=== PATIENT | female | born 1950 | race Caucasian/White ===

== ENCOUNTER → 2024-08-19 | Outpatient (CLI) | payer MEDICARE, BC, SELFPAY | END | disposition home or self-care (01) | LOC: SWHD 13:07 | PROVIDERS: PCP Family Medicine; Referring Provider Family Medicine; Visit Provider Surgery | DX: S21.001A Unspecified open wound of right breast, initial encounter (principal); X58.XXXA Exposure to other specified factors, initial encounter; D84.89 Other immunodeficiencies; N60.01 Solitary cyst of right breast; I82.402 Acute embolism and thrombosis of unspecified deep veins of left lower extremity; I10 Essential (primary) hypertension; E11.69 Type 2 diabetes mellitus with other specified complication; Z79.4 Long term (current) use of insulin | CPT/HCPCS: 99213; A9270; G0463 ==

== ENCOUNTER → 2024-09-15 | Outpatient (CLI) | payer MEDICARE, BC, SELFPAY ==
[2024-09-15 11:15] LABS: Parathyroid Hormone Intact 151.3 pg/ml (18.5-88.0)
[2024-09-15 11:20] LABS: Albumin, Serum 4.1 gm/dL (3.4-4.8); Anion Gap 7 (7-16); BUN/Creatinine Ratio 20 Ratio (12-20); Blood Urea Nitrogen 32 mg/dL (9-23); Calcium 9.1 mg/dL (8.3-10.6); Calcium (Corrected) 9.1 mg/dL (8.5-10.1); Carbon Dioxide 26.3 mMol/L (20.0-31.0); Chloride 104 mMol/L (98-107); Creatinine (Component) 1.6 mg/dL (0.6-1.3); Glucose 116 mg/dL (74-106); Osmolality,Calculated 281 (275-295); Phosphorous 4.4 mg/dL (2.4-5.1); Potassium 4.5 mMol/L (3.4-5.1); Sodium 137 mMol/L (136-145); eGFR 34 See Note
[2024-09-15 11:42] LABS: Vitamin D 25 Hydroxy Total 34.1 ng/mL (7.3-40.2)
[2024-09-15 12:12] LABS: Total Iron Binding Capacity 271 mcg/dL (250-425)
[2024-09-15 12:24] LABS: Iron 57 mcg/dL (50-170); Percent Iron Saturation 21 % (20-55); Unsaturated Iron Binding 214 (225-295)
[2024-09-15 12:52] LABS: Basophils # (Auto) 0.1 Thou/mm3 (0.0-0.2); Basophils % (Auto) 1 % (0-2.5); Eosinophils # (Auto) 0.3 Thou/mm3 (0.0-0.5); Eosinophils % (Auto) 7 % (0-10); Hematocrit 35.6 % (36.0-46.0); Immature Granulocytes % (Auto) 0 % (0-0); Immature Granulocytes Auto 0.02 Thou/mm3 (0.00-0.00); Lymphocytes # (Auto) 1.2 Thou/mm3 (1.0-4.8); Lymphocytes % (Auto) 23 % (10-50); Mean Corpuscular HGB Conc 33.7 g/dl (31.0-37.0); Mean Corpuscular Hemoglobin 30.8 pg (25.0-35.0); Mean Corpuscular Volume 91 fL (80-100); Monocytes # (Auto) 0.5 Thou/mm3 (0.0-0.8); Monocytes % (Auto) 10 % (0-12); Neutrophils % (Auto) 59 % (37-80); Nucleated Red Blood Cell % 0 /100 WBC (0); Platelet Count 135 Thou/mm3 (140-440)
== END | disposition home or self-care (01) ==
LOC: COPL 10:04
PROVIDERS: PCP Family Medicine; Referring Provider Internal Medicine Nephrology; Visit Provider Internal Medicine Nephrology
DX: N18.30 Chronic kidney disease, stage 3 unspecified (principal); D63.1 Anemia in chronic kidney disease; E55.9 Vitamin D deficiency, unspecified
CPT/HCPCS: 36415; 80069; 81001; 82306; 83540; 83550; 83970; 85025

== ENCOUNTER → 2024-09-16 | Outpatient (CLI) | payer MEDICARE, BC, SELFPAY ==
[2024-09-16 14:00] LABS: Collection Type, Urine Clean Catch
[2024-09-16 16:55] LABS: Bilirubin,Urine Negative (Negative); Blood,Urine Negative (Negative); Clarity,Urine Clear (Clear/Hazy); Color,Urine Lt-Yellow (Lt Yel-Yel); Glucose, Urine 4+ (Negative); Ketones,Urine Negative (Negative); Leukocyte Esterase,Urine Negative (Negative); Nitrite,Urine Negative (Negative); PH,Urine 5.5 (5.0-7.0); Protein,Urine 1+ (Neg - Trace); RBC,Urine 1 /hpf (0-3); Specific Gravity,Urine 1.012 (1.001-1.035); Squamous Epithelial Cell,Urine 1 /hpf (0-5); Urobilinogen,Urine Negative mg/dL (0.0-1.0); WBC,Urine 5 /hpf (0-5)
== END | disposition home or self-care (01) ==
LOC: SLDO 13:56
PROVIDERS: Referring Provider Internal Medicine Nephrology; Visit Provider Internal Medicine Nephrology
DX: I12.9 Hypertensive chronic kidney disease with stage 1 through stage 4 chronic kidney disease, or unspecified chronic kidney disease (principal); E11.22 Type 2 diabetes mellitus with diabetic chronic kidney disease; N18.32 Chronic kidney disease, stage 3b; D63.1 Anemia in chronic kidney disease; E55.9 Vitamin D deficiency, unspecified
CPT/HCPCS: 81001

== ENCOUNTER 2024-10-26 08:13 | Outpatient (RCR) | payer MEDICARE, BC, SELFPAY ==
--- NOTE | 2024-10-06 11:45 | CTCFLWUP_ITS ---
Patient: ADAL SCHWARZ : 1950 Page 8 of 9 FOLLOW UP NOTE DATE OF SERVICE: 10/06/2024 NAME: ADAL SCHWARZ ACCOUNT: [id number] : 1950 AGE: 74 REASON FOR VISIT: Follow up on rectal adenocarcinoma Interval history Patient received her last chemotherapy with 5-FU on July 27. Patient had cyst on her breast which was incised and drained. Patient has not come for a treatment since then. Patient is now ready to r esume her therapy and requesting to restart her chemotherapy. Patient also saw her yeast fermentation attendant and primary care who it seems recommended hydrochlorothiazide and f urosemide as her blood pressure medications and patient wanted my opinion to home to follow through. Patient still have noticed swelling in her feet. She takes Lasix and potassium as needed and today she did not take it. Patient is planning a trip to [place] and then [place]. She was diagnosed with a blood clot in her leg and has been on Eliquis. Patient takes Eliquis once daily as she was unable to tolerate twice daily and had bleeding. ONCOLOGY HISTORY: DIAGNOSIS: synchronous stage I (T2, NX, cM 0) pT2, NX well-differentiated rectal adenocarcinoma S/p transanal ex cision of the rectal adenocarcinoma (06/19/2023) Stage IIa (PT3, N0, cM0) moderately differentiated adenocarcinoma of the ascending colon, S/p right h emicolectomy (08/15/2023) S/p adjuvant chemoradiation therapy for the rectal area with Capecitabine as radiosensitizing agent. Unfortunately Ms. Schwarz was not able to take the Capecitabine due to CRF. According to her she only take 2 weeks worth of Capecitabine. Currently on adjuvant 5-FU and leucovorin (02/12/2024??) last taken on 07/27/2024 DATE OF DIAGNOSIS: STAGE/TNM: TREATMENT HISTORY: Care?Plan Start?Date Cycle Day Intent INJECTAFER 09/25/2023 1 14 Palliative 5?FU?and?leucovorin 02/12/2024 1 56 Curative?(adjuvant) BRIANNA Schwarz is a 74-year-old ENG speaking female with history of type 2 diabetes currently on insulin, peripheral neuropathy for at least last 5 years and lower extremities started having rect al bleeding in April 2023. Patient also lost about 20 pounds in last 1 year. 05/27/2023: Ms. Schwarz had a colonoscopy done 06/19/2023: Ms. Schwarz had a full-thickness transanal excision of the rectal tumor 08/15/2023: Ms. Schwarz had right hemicolectomy 11/19/2023 - 12/26/2023: Ms. Schwarz had adjuvant chemoradiation therapy to the rectal cancer. Unfortunat saulo she was not able to take full course of Capecitabine. According to Ms. Schwarz she only took 2 wee ks worth of Capecitabine. 10/22/2023: PET/CT scan? 02/05/2024: PET/CT scan? 02/12/2024: Started on adjuvant 5-FU and leucovorin. OTHER MEDICAL HISTORY/CONDITIONS: HYPERTENSION DIBETES TYPE 2 PANCREATITIS / COLON CANCER DX KIDNEY STONES RHEUMATIC FEVER 1961 HERNIA LAPARASCOPIC ASSISTED RIGHT COLECTOMY (08/15/2023) COLONOSCOPY () HERNIA SX REPAIR (05/16/2020) HYSTERECTOMY (1978) VENA SEAL BILATERAL LEG DR RAMIREZ 02/2020 EYELID SURGERY 09/2002 CERVICAL EPIDURAL 10/2020 REMOVAL OF TUBES AND OVARIES 05/2022 RECTAL CANCER SX 06/26/2023 APPENDECTOMY 196 SX BILATERAL HAMMERTOES 09/06/2019 BLADDER LEFT/REPAIR RECTUM AND VAGINA 01/2019 REMOVAL OF KIDNEY STONES LEFT SIDE STENT 09/2018 PANCREATIC PSEUDOCYST 03/2018 UMBILICAL HERNIA 05/2017 REMOVAL KIDNEY STONE RIGHT SIDE/ STENT PLACED 04/2015 CHOLECYSTECTOMY 03/2011 BLADDER REPAIR [place] 01/2003 TONSILLECTOMY 1963 FAMILY HISTORY: Father: FATHER BLADDER CANCER, NASAL TUMOR Mother:?MOTHER?LUNG?CANCER Sibling:?DENIES Children:?DENIES Cancer History:?RECTAL CANCER DX 05/2023 SOCIAL HISTORY: 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 amlodipine - 5 mg 1 tab Daily 2. apixaban - 5 mg (74 tabs) 1 tab as per instructions 3. cloNIDine - 0.2 mg/24 hr 1 Patch Weekly 4. Farxiga - 10 mg 1 tab Every other day 5. HumaLOG KwikPen Insulin - 100 unit/mL As directed 6. Lantus - 100 unit/mL 13 Unit In the evening 7. Lomotil - 2.5-0.025 mg 1 tab one po four times a day prn diarrhea 8. timoloL maleate - 0.5 % 1 As directed 9. Triamterene W/Hctz - 37.5-25 mg 1 tab Daily 10. valsartan - 320 mg 1 tab Daily 11. Vitamin C - 1,000 mg 1 Capsule Medications Last Reconciled by Neema Dalton MA on 10/06/2024 ALLERGIES: Penicillin V; Penicillin V; MIDAZOLAM HCL REVIEW OF SYSTEMS: A complete 14-point review of systems was performed and is negative except as noted in interval histo ry. PHYSICAL EXAMINATION: VITAL SIGNS: Temperature?98, B/P?159/76, Oxygen?Saturation?99% Weight?157?lbs PAIN: 0 - No pain ECOG Performance Status: 1 - Symptomatic; ambulatory; restricted in strenuous activity General Examination alert oriented x 4 CHEST: Clear to auscultation. No wheezes or rales audible. CARDIAC: Rhythm regular, no murmurs or gallops present. ABDOMEN: Soft. No hepatomegaly. No splenomegaly. EXTREMITIES: At least 2+ pitting edema LABORATORY DATA: I have personally reviewed and interpreted each of the patient?s relevant lab tests, abnormal finding s are below: Date 09/15/24 ??GLUCOSE,RANDOM?(mg/dL) 116?H ??BLOOD?UREA?NITROGEN?(mg/dL) 32?H ??CREATININE?(mg/dL) 1.60?H ??SODIUM?(mmol/L) 137 ??POTASSIUM?(mmol/L) 4.5 ??CHLORIDE?(mmol/L) 104 ??CrCl?(CandG)?(ml/min) 30.44 ??ALBUMIN,?SERUM?(gm/dl) 4.1 ??CALCIUM,?SERUM?(mg/dL) 9.1 ??CALCIUM?SERUM?(CORRECTED)?(mg/dL) 9.1 IMPRESSION/PLAN: Adenocarcinoma of the rectum no MSI Patient has been on adjuvant chemotherapy with 5-FU after being treated with concurrent chemoradiatio n With restart her on 5-FU to complete for 6 months Advised to schedule patient ROBERTO ORDERS: CBC CMP CEA RETURN TO CLINIC: In 3 weeks BILLING AND COMPLIANCE: I reviewed external records from providers outside my specialty as summarized above. I spent a total of 50 minutes on this patient?s care on the day of their visit excluding time spent related to any bi lled procedures. This time includes time spent with the patient as well as time spent documenting in the medical record, reviewing patients records and tests, obtaining history, placing orders, communi cating with other healthcare professionals, counseling the patient, family or caregiver, and/or care coordination for the diagnoses above. Electronically Signed by: {Object.Sanct_ID*[email or web address]@M}, {Object.Sanct_ID*PnP.Suffix@U} D: {Object.Sanct_Date} T: {Object.Sanct_Time} CC: PCP: Duran Briseno Referring: Duran Briseno This document was completed utilizing speech recognition software. Grammatical errors, random word in sertions, pronoun errors, and incomplete sentences are an occasional consequence of this system due t o software limitations, ambient noise, and hardware issues. Any formal questions or concerns about e content, text or information contained within the body of this dictation should be directly address ed to the provider for clarification.
[2024-10-12 16:20] LABS: Basophils # (Auto) 0.1 Thou/mm3 (0.0-0.2); Basophils % (Auto) 1 % (0-2.5); Eosinophils # (Auto) 0.2 Thou/mm3 (0.0-0.5); Eosinophils % (Auto) 4 % (0-10); Hematocrit 33.3 % (36.0-46.0); Immature Granulocytes % (Auto) 0 % (0-0); Immature Granulocytes Auto 0.01 Thou/mm3 (0.00-0.00); Lymphocytes # (Auto) 1.2 Thou/mm3 (1.0-4.8); Lymphocytes % (Auto) 21 % (10-50); Mean Corpuscular Hemoglobin 29.2 pg (25.0-35.0); Mean Corpuscular Volume 88 fL (80-100); Monocytes # (Auto) 0.5 Thou/mm3 (0.0-0.8); Monocytes % (Auto) 10 % (0-12); Neutrophils # (Auto) 3.5 Thou/mm3 (1.8-7.7); Neutrophils % (Auto) 64 % (37-80); Nucleated Red Blood Cell % 0 /100 WBC (0); Platelet Count 145 Thou/mm3 (140-440); RDW Standard Deviation 44.5 fL (36.4-46.3); Red Blood Count 3.77 Miln/mm3 (4.00-5.20); White Blood Count 5.5 Thou/mm3 (3.6-11.0)
[2024-10-12 16:43] LABS: Alanine Aminotransferase 22 U/L (10-49); Albumin, Serum 4.4 gm/dL (3.4-4.8); Albumin/Globulin Ratio 1.9 (1.2-2.2); Alkaline Phosphatase 102 U/L (46-116); Anion Gap 10 (7-16); Aspartate Amino Transferase 11 U/L (0-34); BUN/Creatinine Ratio 23 Ratio (12-20); Bilirubin,Total 0.4 mg/dL (0.3-1.2); Blood Urea Nitrogen 42 mg/dL (9-23); Calcium 9.1 mg/dL (8.3-10.6); Calcium (Corrected) 9.1 mg/dL (8.5-10.1); Carbon Dioxide 20.4 mMol/L (20.0-31.0); Chloride 106 mMol/L (98-107); Creatinine (Component) 1.8 mg/dL (0.6-1.3); Globulin 2.3 gm/dL (2.3-3.5); Glucose 168 mg/dL (74-106); Osmolality,Calculated 286 (275-295); Potassium 4.4 mMol/L (3.4-5.1); Sodium 136 mMol/L (136-145); Total Protein 6.7 gm/dL (5.7-8.2); eGFR 29 See Note
[2024-10-21 09:54] LABS: Basophils % (Auto) 1 % (0-2.5); Eosinophils # (Auto) 0.4 Thou/mm3 (0.0-0.5); Eosinophils % (Auto) 8 % (0-10); Hematocrit 33.4 % (36.0-46.0); Hemoglobin 10.9 g/dL (12.0-16.0); Immature Granulocytes % (Auto) 0 % (0-0); Immature Granulocytes Auto 0.01 Thou/mm3 (0.00-0.00); Lymphocytes # (Auto) 0.9 Thou/mm3 (1.0-4.8); Lymphocytes % (Auto) 18 % (10-50); Mean Corpuscular HGB Conc 32.6 g/dl (31.0-37.0); Mean Corpuscular Hemoglobin 29.2 pg (25.0-35.0); Mean Corpuscular Volume 90 fL (80-100); Monocytes # (Auto) 0.5 Thou/mm3 (0.0-0.8); Monocytes % (Auto) 9 % (0-12); Neutrophils # (Auto) 3.2 Thou/mm3 (1.8-7.7); Neutrophils % (Auto) 63 % (37-80); Nucleated Red Blood Cell % 0 /100 WBC (0); Platelet Count 129 Thou/mm3 (140-440); RDW Standard Deviation 44.4 fL (36.4-46.3); Red Blood Count 3.73 Miln/mm3 (4.00-5.20); White Blood Count 5.1 Thou/mm3 (3.6-11.0)
[2024-10-21 10:04] LABS: Alanine Aminotransferase 20 U/L (10-49); Albumin, Serum 4.2 gm/dL (3.4-4.8); Albumin/Globulin Ratio 1.8 (1.2-2.2); Alkaline Phosphatase 103 U/L (46-116); Anion Gap 8 (7-16); Aspartate Amino Transferase 21 U/L (0-34); BUN/Creatinine Ratio 24 Ratio (12-20); Bilirubin,Total 0.3 mg/dL (0.3-1.2); Blood Urea Nitrogen 38 mg/dL (9-23); Calcium 9.1 mg/dL (8.3-10.6); Calcium (Corrected) 9.1 mg/dL (8.5-10.1); Carbon Dioxide 22.2 mMol/L (20.0-31.0); Chloride 110 mMol/L (98-107); Creatinine (Component) 1.6 mg/dL (0.6-1.3); Globulin 2.4 gm/dL (2.3-3.5); Glucose 126 mg/dL (74-106); Osmolality,Calculated 290 (275-295); Potassium 4.4 mMol/L (3.4-5.1); Sodium 140 mMol/L (136-145); Total Protein 6.6 gm/dL (5.7-8.2); eGFR 34 See Note
[2024-10-26 08:57] LABS: Basophils % (Auto) 1 % (0-2.5); Eosinophils # (Auto) 0.2 Thou/mm3 (0.0-0.5); Eosinophils % (Auto) 5 % (0-10); Hematocrit 32.4 % (36.0-46.0); Immature Granulocytes % (Auto) 0 % (0-0); Immature Granulocytes Auto 0.01 Thou/mm3 (0.00-0.00); Lymphocytes # (Auto) 0.7 Thou/mm3 (1.0-4.8); Lymphocytes % (Auto) 17 % (10-50); Mean Corpuscular Volume 88 fL (80-100); Monocytes # (Auto) 0.3 Thou/mm3 (0.0-0.8); Monocytes % (Auto) 6 % (0-12); Neutrophils # (Auto) 3.2 Thou/mm3 (1.8-7.7); Neutrophils % (Auto) 72 % (37-80); Nucleated Red Blood Cell % 0 /100 WBC (0); Platelet Count 105 Thou/mm3 (140-440); Red Blood Count 3.67 Miln/mm3 (4.00-5.20); White Blood Count 4.4 Thou/mm3 (3.6-11.0)
[2024-10-26 09:20] LABS: Alanine Aminotransferase 10 U/L (10-49); Albumin/Globulin Ratio 1.8 (1.2-2.2); Alkaline Phosphatase 96 U/L (46-116); Anion Gap 9 (7-16); Aspartate Amino Transferase 27 U/L (0-34); BUN/Creatinine Ratio 23 Ratio (12-20); Bilirubin,Total 0.5 mg/dL (0.3-1.2); Blood Urea Nitrogen 34 mg/dL (9-23); Calcium 9.5 mg/dL (8.3-10.6); Calcium (Corrected) 9.5 mg/dL (8.5-10.1); Carbon Dioxide 19.1 mMol/L (20.0-31.0); Chloride 111 mMol/L (98-107); Creatinine (Component) 1.5 mg/dL (0.6-1.3); Globulin 2.2 gm/dL (2.3-3.5); Glucose 165 mg/dL (74-106); Osmolality,Calculated 289 (275-295); Potassium 4.6 mMol/L (3.4-5.1); Sodium 139 mMol/L (136-145); Total Protein 6.2 gm/dL (5.7-8.2); eGFR 36 See Note
[2024-10-26 09:32] LABS: Carcinoembryonic Antigen 3.4 ng/mL (0.0-5.0)
== END 2024-10-26 23:59 | disposition home or self-care (01) ==
LOC: SCTC 08:13
PROVIDERS: PCP Family Medicine; Referring Provider Family Medicine; Visit Provider Internal Medicine Hematology & Oncology
DX: Z51.11 Encounter for antineoplastic chemotherapy (principal); C20 Malignant neoplasm of rectum
CPT/HCPCS: 36591; 80053; 82378; 85025; 96366; 96367; 96368; 96375; 96409; 96411; A4216; J0640; J1642; J2405; J7040; J9190; Q3014

== ENCOUNTER 2024-11-17 14:40 | Outpatient (RCR) | payer MEDICARE, BC, SELFPAY ==
[2024-11-03 16:13] LABS: Basophils % (Auto) 0 % (0-2.5); Eosinophils # (Auto) 0.2 Thou/mm3 (0.0-0.5); Eosinophils % (Auto) 5 % (0-10); Hematocrit 29.7 % (36.0-46.0); Hemoglobin 9.9 g/dL (12.0-16.0); Immature Granulocytes % (Auto) 0 % (0-0); Immature Granulocytes Auto 0.01 Thou/mm3 (0.00-0.00); Lymphocytes # (Auto) 0.8 Thou/mm3 (1.0-4.8); Lymphocytes % (Auto) 18 % (10-50); Mean Corpuscular HGB Conc 33.3 g/dl (31.0-37.0); Mean Corpuscular Volume 87 fL (80-100); Monocytes # (Auto) 0.4 Thou/mm3 (0.0-0.8); Monocytes % (Auto) 8 % (0-12); Neutrophils # (Auto) 3.1 Thou/mm3 (1.8-7.7); Neutrophils % (Auto) 69 % (37-80); Nucleated Red Blood Cell % 0 /100 WBC (0); Platelet Count 108 Thou/mm3 (140-440); RDW Standard Deviation 44.5 fL (36.4-46.3); Red Blood Count 3.41 Miln/mm3 (4.00-5.20); White Blood Count 4.5 Thou/mm3 (3.6-11.0)
[2024-11-03 16:38] LABS: Alanine Aminotransferase 15 U/L (10-49); Albumin, Serum 4.1 gm/dL (3.4-4.8); Albumin/Globulin Ratio 1.9 (1.2-2.2); Alkaline Phosphatase 95 U/L (46-116); Anion Gap 8 (7-16); Aspartate Amino Transferase 18 U/L (0-34); BUN/Creatinine Ratio 29 Ratio (12-20); Bilirubin,Total 0.4 mg/dL (0.3-1.2); Blood Urea Nitrogen 44 mg/dL (9-23); Calcium 8.7 mg/dL (8.3-10.6); Calcium (Corrected) 8.7 mg/dL (8.5-10.1); Carbon Dioxide 19.6 mMol/L (20.0-31.0); Chloride 107 mMol/L (98-107); Creatinine (Component) 1.5 mg/dL (0.6-1.3); Globulin 2.2 gm/dL (2.3-3.5); Glucose 141 mg/dL (74-106); Osmolality,Calculated 283 (275-295); Potassium 4.4 mMol/L (3.4-5.1); Sodium 135 mMol/L (136-145); Total Protein 6.3 gm/dL (5.7-8.2); eGFR 36 See Note
[2024-11-03 16:59] LABS: Carcinoembryonic Antigen 3.9 ng/mL (0.0-5.0)
[2024-11-10 16:18] LABS: Basophils % (Auto) 0 % (0-2.5); Eosinophils # (Auto) 0.3 Thou/mm3 (0.0-0.5); Eosinophils % (Auto) 7 % (0-10); Hemoglobin 10.3 g/dL (12.0-16.0); Immature Granulocytes % (Auto) 0 % (0-0); Immature Granulocytes Auto 0.01 Thou/mm3 (0.00-0.00); Lymphocytes # (Auto) 1.2 Thou/mm3 (1.0-4.8); Lymphocytes % (Auto) 25 % (10-50); Mean Corpuscular HGB Conc 34.3 g/dl (31.0-37.0); Mean Corpuscular Hemoglobin 29.4 pg (25.0-35.0); Mean Corpuscular Volume 86 fL (80-100); Monocytes # (Auto) 0.4 Thou/mm3 (0.0-0.8); Monocytes % (Auto) 8 % (0-12); Neutrophils # (Auto) 2.7 Thou/mm3 (1.8-7.7); Neutrophils % (Auto) 59 % (37-80); Nucleated Red Blood Cell % 0 /100 WBC (0); Platelet Count 115 Thou/mm3 (140-440); RDW Standard Deviation 45.5 fL (36.4-46.3); White Blood Count 4.6 Thou/mm3 (3.6-11.0)
[2024-11-10 16:42] LABS: Alanine Aminotransferase 14 U/L (10-49); Albumin, Serum 4.3 gm/dL (3.4-4.8); Alkaline Phosphatase 105 U/L (46-116); Anion Gap 9 (7-16); Aspartate Amino Transferase 20 U/L (0-34); BUN/Creatinine Ratio 30 Ratio (12-20); Bilirubin,Total 0.4 mg/dL (0.3-1.2); Blood Urea Nitrogen 48 mg/dL (9-23); Calcium 9.1 mg/dL (8.3-10.6); Calcium (Corrected) 9.1 mg/dL (8.5-10.1); Carbon Dioxide 21.9 mMol/L (20.0-31.0); Chloride 103 mMol/L (98-107); Creatinine (Component) 1.6 mg/dL (0.6-1.3); Globulin 2.2 gm/dL (2.3-3.5); Glucose 73 mg/dL (74-106); Osmolality,Calculated 279 (275-295); Potassium 5.2 mMol/L (3.4-5.1); Sodium 134 mMol/L (136-145); Total Protein 6.5 gm/dL (5.7-8.2); eGFR 34 See Note
[2024-11-10 16:44] LABS: Carcinoembryonic Antigen 4.7 ng/mL (0.0-5.0)
[2024-11-11 09:57] LABS: Alanine Aminotransferase 13 U/L (10-49); Albumin, Serum 4.2 gm/dL (3.4-4.8); Alkaline Phosphatase 106 U/L (46-116); Anion Gap 9 (7-16); Aspartate Amino Transferase 18 U/L (0-34); BUN/Creatinine Ratio 28 Ratio (12-20); Bilirubin,Total 0.4 mg/dL (0.3-1.2); Blood Urea Nitrogen 47 mg/dL (9-23); Calcium 9.1 mg/dL (8.3-10.6); Calcium (Corrected) 9.1 mg/dL (8.5-10.1); Carbon Dioxide 22.2 mMol/L (20.0-31.0); Chloride 107 mMol/L (98-107); Creatinine (Component) 1.7 mg/dL (0.6-1.3); Globulin 2.1 gm/dL (2.3-3.5); Glucose 119 mg/dL (74-106); Osmolality,Calculated 288 (275-295); Potassium 4.8 mMol/L (3.4-5.1); Sodium 138 mMol/L (136-145); Total Protein 6.3 gm/dL (5.7-8.2); eGFR 31 See Note
--- NOTE | 2024-11-18 06:16 | CTCFLWUP_ITS ---
Patient: ADAL SCHWARZ : 1950 Page 3 of 4 FOLLOW UP NOTE DATE OF SERVICE: 11/17/2024 NAME: ADAL SCHWARZ ACCOUNT: [id number] : 1950 AGE: 74 INTERVAL HISTORY: ONCOLOGY HISTORY: DIAGNOSIS: Iron deficiency anemia, unspecified [ICD10] D50.9; Malignant neoplasm of rectum [ICD10] C20 DATE OF DIAGNOSIS: synchronous stage I (T2, NX, cM 0) pT2, NX well-differentiated rectal adenocarcinoma S/p transanal excision of the rectal adenocarcinoma (06/19/2023) Stage IIa (PT3, N0, cM0) moderately differentiated adenocarcinoma of the ascending colon, S/p right hemicolectomy (08/15/2023) S/p adjuvant chemoradiati on therapy for the rectal area with Capecitabine as radiosensitizing agent. Unfortunately Ms. Schwarz was not able to take the Capecitabine due to CRF. According to her she only t dimas 2 weeks worth of Capecitabine. Currently on adjuvant 5-FU and leucovorin (02/12/2024??) Chronic renal insufficiency Type 2 diabetes c urrently on insulin. History of peripheral neuropathy. STAGE/TNM: synchronous stage I (T2, NX, cM 0) pT2, NX well-differentiated rectal adenocarcinoma S/p transanal excision of the rectal adenocarcinoma (06/19/2023) Stage IIa (PT3, N0, cM0) moderately differentiated adenocarcinoma of the ascending colon, S/p right hemicolectomy (08/15/2023) TREATMENT HISTORY: Care?Plan Start?Date Cycle Day Intent INJECTAFER 09/25/2023 1 14 Palliative 5?FU?and?leucovorin 02/12/2024 1 56 Curative?(adjuvant) HISTORY OF PRESENT ILLNESS: Adal Schwarz is a 74-year-old ENG speaking female with history of type 2 diabetes currently on insulin, peripheral neuropathy for at least last 5 years and lower extremities started having rec anjali bleeding in April 2023. Patient also lost about 20 pounds in last 1 year. 05/27/2023: Ms. Schwarz had a colonoscopy done Patient: ADAL SCHWARZ. 06/19/2023: Ms. Schwarz had a full-thickness transanal excision of the rectal tumor Patient: SMITHA SCHWARZ 08/15/2023: Ms. Schwarz had right hemicolectomy 11/19/2023 - 12/26/2023: Ms. Schwarz had adjuvant chemoradia tion therapy to the rectal cancer. Unfortunately she was not able to take full course of Capecitabine . According to Ms. Schwarz she only took 2 weeks worth of Capecitabine. 10/22/2023: PET/CT scan? 02/05/2024: PET/CT scan? 02/12/2024: Started on adjuvant 5-FU and leucovorin. OTHER MEDICAL HISTORY/CONDITIONS: HYPERTENSION DIBETES TYPE 2 PANCREATITIS / COLON CANCER DX KIDNEY STONES RHEUMATIC FEVER 1961 HERNIA LAPARASCOPIC ASSISTED RIGHT COLECTOMY (08/15/2023) COLONOSCOPY () HERNIA SX REPAIR (05/16/2020) HYSTERECTOMY (1978) VENA SEAL BILATERAL LEG DR RAMIREZ 02/2020 EYELID SURGERY 09/2002 CERVICAL EPIDURAL 10/2020 REMOVAL OF TUBES AND OVARIES 05/2022 RECTAL CANCER SX 06/26/2023 APPENDECTOMY 1960 SX BILATERAL HAMMERTOES 09/06/2019 BLADDER LEFT/REPAIR RECTUM AND VAGINA 01/2019 REMOVAL OF KIDNEY STONES LEFT SIDE STENT 09/2018 PANCREATIC PSEUDOCYST 03/2018 UMBILICAL HERNIA 05/2017 REMOVAL KIDNEY STONE RIGHT SIDE/ STENT PLACED 04/2015 CHOLECYSTECTOMY 03/2011 BLADDER REPAIR [place] 01/2003 TONSILLECTOMY 1963 FAMILY HISTORY: Father: FATHER BLADDER CANCER, NASAL TUMOR Mother:?MOTHER?LUNG?CANCER Sibling:?DENIES Children:?DENIES Cancer History:?RECTAL CANCER DX 05/2023 SOCIAL HISTORY: 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 amlodipine - 5 mg 1 tab Daily 2. apixaban - 5 mg (74 tabs) 1 tab as per instructions 3. cloNIDine - 0.2 mg/24 hr 1 Patch Weekly 4. HumaLOG KwikPen Insulin - 100 unit/mL As directed 5. Lantus - 100 unit/mL 13 Unit In the evening 6. Lomotil - 2.5-0.025 mg 1 tab one po four times a day prn diarrhea 7. Triamterene W/Hctz - 37.5-25 mg 1 tab Daily 8. valsartan - 320 mg 1 tab Daily 9. Vitamin C - 1,000 mg 1 Capsule Medications Last Reconciled by Alexa Jane MA on 11/17/2024 ALLERGIES: Penicillin V; Penicillin V; MIDAZOLAM HCL REVIEW OF SYSTEMS: A complete 14-point review of systems was performed and is negative except as noted in interval histo ry. PHYSICAL EXAMINATION: VITAL SIGNS: Temperature?98.2, B/P?121/74, Oxygen?Saturation?100% Weight?153?lbs (Change?since? 5:?-7?lbs) PAIN: 0 - No pain General Examination alert oriented x 4 CHEST: Clear to auscultation. No wheezes or rales audible. CARDIAC: Rhythm regular, no murmurs or gallops present. ABDOMEN: Soft. No hepatomegaly. No splenomegaly. EXTREMITIES: At least 2+ pitting edema LABORATORY DATA: I have personally reviewed and interpreted each of the patient?s relevant lab tests, abnormal finding s are below: Date 11/11/24 ??GLUCOSE,RANDOM?(mg/dL) 119?H ??BLOOD?UREA?NITROGEN?(mg/dL) 47?H ??CREATININE?(mg/dL) 1.70?H ??SODIUM?(mmol/L) 138 ??POTASSIUM?(mmol/L) 4.8 ??CHLORIDE?(mmol/L) 107 ??CrCl?(CandG)?(ml/min) 28.65 ??AST/SGOT?(Unit/L) 18 ??ALT/SGPT?(Unit/L) 13 ??ALKALINE?PHOSPHATASE?(Unit/L) 106 ??BILIRUBIN,?TOTAL?(mg/dL) 0.4 ??PROTEIN?TOTAL?(gm/dl) 6.3 ??ALBUMIN,?SERUM?(gm/dl) 4.2 ??GLOBULIN?(gm/dl) 2.1?L ??ALBUMIN/GLOBULIN?RATIO 2.0 ??CALCIUM,?SERUM?(mg/dL) 9.1 ??CALCIUM?SERUM?(CORRECTED)?(mg/dL) 9.1 ASSESSMENT/PLAN: synchronous stage I (T2, NX, cM 0) pT2, NX well-differentiated rectal adenocarcinoma S/p transanal ex cision of the rectal adenocarcinoma (06/19/2023) Stage IIa (PT3, N0, cM0), pMMR, moderately differentiated adenocarcinoma of the ascending colon, S/p right hemicolectomy (08/15/2023) Ms. Schwarz completed adjuvant chemoradiation of the rectal cancer on 12/26/2023. Unfortunately she was n ot able to take Capecitabine for the full course of radiation. According Ms. Schwarz she only took [place] citabine for about 2 weeks. 01/2024 on adjuvant chemotherapy with 5-FU and leucovorin. Completed 8-9 months of adjuvant therapy with some breaks and atleast 6 months of chemo . - Stopped chemotherapy on 11/18/2024 . no further chemotherapy - Will get inaging to see any recurrence ORDERS: Pet scan,cbc,cmp,naterra ,cea RETURN TO CLINIC: 2 months BILLING AND COMPLIANCE: I reviewed external records from providers outside my specialty as summarized above. I spent a total of 50 minutes on this patient?s care on the day of their visit excluding time spent related to any bi lled procedures. This time includes time spent with the patient as well as time spent documenting in the medical record, reviewing patients records and tests, obtaining history, placing orders, communi cating with other healthcare professionals, counseling the patient, family or caregiver, and/or care coordination for the diagnoses above. Electronically Signed by: Dean Kohli MD T: 6:14 AM CC: PCP: Duran Briseno Referring: Duran Briseno This document was completed utilizing speech recognition software. Grammatical errors, random word in sertions, pronoun errors, and incomplete sentences are an occasional consequence of this system due t o software limitations, ambient noise, and hardware issues. Any formal questions or concerns about th e content, text or information contained within the body of this dictation should be directly address ed to the provider for clarification.
== END 2024-11-26 23:59 | disposition home or self-care (01) ==
LOC: SCTC 14:40
PROVIDERS: PCP Family Medicine; Referring Provider Family Medicine; Visit Provider Internal Medicine Hematology & Oncology
DX: Z51.11 Encounter for antineoplastic chemotherapy (principal); C20 Malignant neoplasm of rectum; C18.2 Malignant neoplasm of ascending colon; Z92.3 Personal history of irradiation; Z90.49 Acquired absence of other specified parts of digestive tract; D50.9 Iron deficiency anemia, unspecified
CPT/HCPCS: 36591; 80053; 82378; 85025; 96366; 96367; 96368; 96409; 99212; A4216; J0640; J1642; J2405; J7040; J7050; J9190; G0463

== ENCOUNTER 2024-12-01 07:58 | Outpatient (RCR) | payer MEDICARE, BC, SELFPAY | END 2024-12-24 23:59 | disposition home or self-care (01) | LOC: SCTC 07:58 | PROVIDERS: PCP Family Medicine; Referring Provider Family Medicine; Visit Provider Internal Medicine Hematology & Oncology | DX: C18.2 Malignant neoplasm of ascending colon (principal); C20 Malignant neoplasm of rectum; Z90.49 Acquired absence of other specified parts of digestive tract | CPT/HCPCS: 36591; A4216; J1642 ==

== ENCOUNTER → 2024-12-02 | Outpatient (CLI) | payer MEDICARE, BC, SELFPAY ==
[2024-12-02 11:25] LABS: Basophils % (Auto) 1 % (0-2.5); Eosinophils # (Auto) 0.2 Thou/mm3 (0.0-0.5); Eosinophils % (Auto) 7 % (0-10); Hematocrit 32.6 % (36.0-46.0); Hemoglobin 10.6 g/dL (12.0-16.0); Immature Granulocytes % (Auto) 0 % (0-0); Immature Granulocytes Auto 0.01 Thou/mm3 (0.00-0.00); Lymphocytes # (Auto) 0.9 Thou/mm3 (1.0-4.8); Lymphocytes % (Auto) 24 % (10-50); Mean Corpuscular HGB Conc 32.5 g/dl (31.0-37.0); Mean Corpuscular Hemoglobin 30.1 pg (25.0-35.0); Mean Corpuscular Volume 93 fL (80-100); Monocytes # (Auto) 0.4 Thou/mm3 (0.0-0.8); Monocytes % (Auto) 10 % (0-12); Neutrophils # (Auto) 2.1 Thou/mm3 (1.8-7.7); Neutrophils % (Auto) 59 % (37-80); Nucleated Red Blood Cell % 0 /100 WBC (0); Platelet Count 108 Thou/mm3 (140-440); RDW Standard Deviation 61.1 fL (36.4-46.3); Red Blood Count 3.52 Miln/mm3 (4.00-5.20); White Blood Count 3.6 Thou/mm3 (3.6-11.0)
[2024-12-02 11:36] LABS: Glucose Estimated Average 131 mg/dL (80-131); Hemoglobin A1C 6.2 % Hgb (4.8-6.0)
[2024-12-02 11:43] LABS: Albumin, Serum 3.9 gm/dL (3.4-4.8); Anion Gap 8 (7-16); BUN/Creatinine Ratio 26 Ratio (12-20); Blood Urea Nitrogen 39 mg/dL (9-23); Calcium 8.9 mg/dL (8.3-10.6); Carbon Dioxide 23.2 mMol/L (20.0-31.0); Chloride 110 mMol/L (98-107); Creatinine (Component) 1.5 mg/dL (0.6-1.3); Glucose 164 mg/dL (74-106); Osmolality,Calculated 294 (275-295); Phosphorous 4.8 mg/dL (2.4-5.1); Potassium 5.3 mMol/L (3.4-5.1); Sodium 141 mMol/L (136-145); eGFR 36 See Note
[2024-12-02 16:24] LABS: Collection Type, Urine Clean Catch
[2024-12-02 17:23] LABS: Bilirubin,Urine Negative (Negative); Blood,Urine Negative (Negative); Clarity,Urine Clear (Clear/Hazy); Color,Urine Lt-Yellow (Lt Yel-Yel); Glucose, Urine Negative (Negative); Ketones,Urine Negative (Negative); Leukocyte Esterase,Urine Positive (Negative); Nitrite,Urine Negative (Negative); Protein,Urine 1+ (Neg - Trace); RBC,Urine 2 /hpf (0-3); Specific Gravity,Urine 1.015 (1.001-1.035); Squamous Epithelial Cell,Urine 1 /hpf (0-5); Urobilinogen,Urine Negative mg/dL (0.0-1.0); WBC,Urine 16 /hpf (0-5)
[2024-12-02 17:45] LABS: Creatinine,Random Urine 46 mg/dL (30-125); Protein Total, Random Urine 91 mg/dL (1-14)
== END | disposition home or self-care (01) ==
LOC: COPL 10:07
PROVIDERS: PCP Family Medicine; Referring Provider Internal Medicine Nephrology; Visit Provider Internal Medicine Nephrology
DX: I12.9 Hypertensive chronic kidney disease with stage 1 through stage 4 chronic kidney disease, or unspecified chronic kidney disease (principal); E11.22 Type 2 diabetes mellitus with diabetic chronic kidney disease; D63.1 Anemia in chronic kidney disease; R80.9 Proteinuria, unspecified
CPT/HCPCS: 36415; 80069; 81001; 82570; 83036; 84156; 85025

== ENCOUNTER → 2024-12-06 | Outpatient (CLI) | payer MEDICARE, BC, SELFPAY ==
--- NOTE | 2024-12-06 09:45 | XR_ITS ---
Examination: Screening digital mammography, bilateral Computer aided detection 3-D breast Tomosynthesis, bilateral Date and time of exam: December 06, 2024 1014 hours Compared to mammograms dating to August 06, 2011 Indication: Screening Technique: Nonmagnified MLO, CC views of the breasts to been obtained, reconstructed from 3-D Tomosynthesis images. R2 computer aided detection program utilized for evaluation of suspicious masses and/or abnormal calcifications. 3-D Tomosynthesis images obtained. Findings: Scattered areas of fibroglandular density Skin lesions right breast Benign calcifications. No interval suspicious masses Impression: BI-RADS category II: Benign Findings. Recommend 1 year follow-up mammogram.
== END | disposition home or self-care (01) ==
PROVIDERS: PCP Family Medicine; Referring Provider Family Medicine; Visit Provider Family Medicine
DX: Z12.31 Encounter for screening mammogram for malignant neoplasm of breast (principal); R92.323 Mammographic fibroglandular density, bilateral breasts; R92.1 Mammographic calcification found on diagnostic imaging of breast
CPT/HCPCS: 77063; 77067

== ENCOUNTER → 2024-12-15 | Outpatient (CLI) | payer MEDICARE, BC, SELFPAY ==
--- NOTE | 2024-12-15 07:00 | XR_ITS ---
Examination: MRI pelvis with intravenous contrast. MRI pelvis without intravenous contrast. Date and time of exam: December 15, 2024 0718 hours Comparison PET/CT scan 07/01/2024 INDICATIONS: Diagnosis malignant neoplasm colon, malignant neoplasm rectum, diagnosed July 2023 and deficiency anemia Technique: Multiple axial, sagittal and coronal sections of the pelvis obtained. Transverse images, TR 6020, TE 107. T1 weighted transverse images, TR 582, TE 9.5. T2-weighted sagittal images, TR 4000, TE 105. T2-weighted sagittal images, TR 4000, TE 5. Coronal images, TR 4210, TE 107. Axial and coronal images are obtained post 3 cc intravenous injection, gadolinium. Findings: No free fluid in the pelvis No common iliac and external iliac internal iliac or common femoral pathologic lymphadenopathy No discrete rectosigmoid or rectal tumor mass noted No presacral mass Increased signal and enhancement in the right sacral wing, axial image 11 Subtle irregular enhancement in the bilateral hips IMPRESSION: No soft tissue pelvic mass Negative for pathologic pelvic lymphadenopathy Abnormal increased signal and enhancement in the right sacral wing, 4 x 3 cm Subtle irregular enhancement in the bilateral hips Recommend nuclear medicine bone scan follow-up to assess for osseous metastatic disease
--- NOTE | 2024-12-15 07:00 | XR_ITS ---
Examination: MRI abdomen with intravenous contrast. MRI abdomen without intravenous contrast. Date and time of exam: December 15, 2024 0718 hours INDICATIONS: Diagnosis malignant neoplasm colon, unspecified arm deficiency anemia, unspecified malignant neoplasm of the rectum, staging Technique: Multiple axial, sagittal and coronal sections of the abdomen obtained. Transverse images, TR 6020, TE 107. T1 weighted transverse images, TR 582, TE 9.5. T2-weighted sagittal images, TR 4000, TE 105. T2-weighted sagittal images, TR 4000, TE 5. Coronal images, TR 4210, TE 107. Axial and coronal images are obtained post 3 cc intravenous injection, gadolinium. Findings: Hepatomegaly 20 cm Spleen is not enlarged No extrahepatic biliary tract dilatation, common hepatic duct 15 mm secondary to 8 mm and 3 mm common bile duct stones Negative for pancreatitis No ascites Minimal perinephric stranding Aorta normal size No abdominal lymphadenopathy IMPRESSION: Significant extrahepatic biliary tract obstruction secondary to 8 mm, 3 mm common bile duct stones Recommend ERCP follow-up
== END | disposition home or self-care (01) ==
LOC: SMRI 06:54
PROVIDERS: PCP Family Medicine; Referring Provider Internal Medicine Hematology & Oncology; Visit Provider Internal Medicine Hematology & Oncology
DX: K83.1 Obstruction of bile duct (principal); R93.7 Abnormal findings on diagnostic imaging of other parts of musculoskeletal system; C20 Malignant neoplasm of rectum; C18.9 Malignant neoplasm of colon, unspecified
CPT/HCPCS: 72197; 74183; A9579

== ENCOUNTER 2024-12-16 06:50 | Day surgery (SDC) | payer MEDICARE, BC, SELFPAY ==
[2024-12-15 13:37] VITALS: BMI 27.1
[2024-12-16] VITALS (9 sets, daily range): BP systolic 117–172; BP diastolic 66–85; PULSE 66–104; RESP 12–25; TEMP 36.6; O2SAT 96–100; BMI 27.1
[2024-12-16] MEDS: SODIUM CHLORIDE 0.9% 500 ML 500 ML 20 ML IV (07:27)
[2024-12-16] MEDS: DiphenhydrAMINE INJ 50 MG/ML VIAL 25 MG IV (07:35)
[2024-12-16] MEDS: MEPERIDINE INJ 25 MG/ML VIAL (ASD USE ONLY) 50 MG IV (07:35)
[2024-12-16] MEDS: fentaNYL CIT INJ 50 mCg/ML AMP 2ML (ASD USE ONLY) IV (07:37)
--- NOTE | 2024-12-16 07:50 | SUR.PHASEII ---
PATEINT INTO RECOVERY WITH NO ACUTE DISTRESS NOTED, V/S STABLE, NO COMPLAINTS OF PAIN OR NAUSEA AT THIS TIME. PATIENT REPOSITIONS SELF FOR COMFORT. PATIENT PASSING SMALL AMOUNTS OF FLATUS. REPORT RECEIVED FROM MIMI DIOR.
--- NOTE | 2024-12-16 08:05 | SUR.PHASEII ---
PATIENT STATES SHE FEELS DISCOMFORT IN HER ABDOMEN, LIKE GAS CRAMPS . PATIENT EDUCATED TO PASS GAS THE DR USES AIR TO INSUFFLATE THE COLON DURING THE PROCEDURE. PATIENT VERBALIZES UNDERSTANDING AND CONTINUES TO PASS GAS.
--- NOTE | 2024-12-16 08:20 | SUR.PHASEII ---
PATIENT RIDE CALLED, NO ANSWER, LEFT VOICEMAIL THAT PATIENT IS READY FOR DISCHARGE.
--- NOTE | 2024-12-16 08:22 | SUR.PHASEII ---
PATIENT AMBULATES TO BATHROOM WITH NO DIFFICULTY, PATIENT PASSES MORE FLATUS UPON SITTING ON THE TOILET. PATIENT ABDOMEN REMAINS SOFT ON PALPATION AND PATIENT REPORTS RELIEF OF DISCOMFORT PREVIOUSLY REPORTED.
--- NOTE | 2024-12-16 08:49 | SUR.PHASEII ---
PATIENT RESTING IN WHEELCHAIR DRINKING WATER WITH NO DIFFICULTY. WAITING FOR DAUGHTER TO ARRIVE TO DISCHARGE PATIENT
== END 2024-12-16 08:53 | disposition home or self-care (01) ==
PROVIDERS: PCP Family Medicine; Referring Provider Surgery; Visit Provider Surgery
PROC: 0DBE8ZX Excision of Large Intestine, Via Natural or Artificial Opening Endoscopic, Diagnostic (ICD-10-PCS; CPT 45380; principal; 2024-12-16 07:30)
DX: K57.31 Diverticulosis of large intestine without perforation or abscess with bleeding (principal); Z85.038 Personal history of other malignant neoplasm of large intestine; Z98.0 Intestinal bypass and anastomosis status; K64.4 Residual hemorrhoidal skin tags
CPT/HCPCS: G0105; J1200; J2175; J3010; J7040

== ENCOUNTER 2025-01-12 08:14 | Outpatient (RCR) | payer MEDICARE, BC, SELFPAY ==
[2025-01-07 11:48] LABS: Basophils % (Auto) 1 % (0-2.5); Eosinophils # (Auto) 0.3 Thou/mm3 (0.0-0.5); Eosinophils % (Auto) 7 % (0-10); Hematocrit 35.5 % (36.0-46.0); Hemoglobin 11.4 g/dL (12.0-16.0); Immature Granulocytes % (Auto) 0 % (0-0); Lymphocytes # (Auto) 0.8 Thou/mm3 (1.0-4.8); Lymphocytes % (Auto) 17 % (10-50); Mean Corpuscular HGB Conc 32.1 g/dl (31.0-37.0); Mean Corpuscular Volume 90 fL (80-100); Monocytes # (Auto) 0.4 Thou/mm3 (0.0-0.8); Monocytes % (Auto) 8 % (0-12); Neutrophils # (Auto) 3.2 Thou/mm3 (1.8-7.7); Neutrophils % (Auto) 68 % (37-80); Nucleated Red Blood Cell % 0 /100 WBC (0); Platelet Count 127 Thou/mm3 (140-440); RDW Standard Deviation 53.7 fL (36.4-46.3); Red Blood Count 3.93 Miln/mm3 (4.00-5.20); White Blood Count 4.8 Thou/mm3 (3.6-11.0)
[2025-01-07 12:12] LABS: Alanine Aminotransferase 15 U/L (10-49); Albumin, Serum 4.1 gm/dL (3.4-4.8); Albumin/Globulin Ratio 1.6 (1.2-2.2); Alkaline Phosphatase 129 U/L (46-116); Anion Gap 12 (7-16); Aspartate Amino Transferase 13 U/L (0-34); BUN/Creatinine Ratio 30 Ratio (12-20); Bilirubin,Total 0.4 mg/dL (0.3-1.2); Blood Urea Nitrogen 54 mg/dL (9-23); Calcium 8.9 mg/dL (8.3-10.6); Calcium (Corrected) 8.9 mg/dL (8.5-10.1); Carbon Dioxide 19.4 mMol/L (20.0-31.0); Chloride 107 mMol/L (98-107); Creatinine (Component) 1.8 mg/dL (0.6-1.3); Globulin 2.6 gm/dL (2.3-3.5); Glucose 232 mg/dL (74-106); LDH (Lactate Dehydrogenase) 198 U/L (120-246); Osmolality,Calculated 297 (275-295); Sodium 138 mMol/L (136-145); Total Protein 6.7 gm/dL (5.7-8.2); eGFR 29 See Note
[2025-01-07 12:16] LABS: Carcinoembryonic Antigen 3.8 ng/mL (0.0-5.0)
[2025-01-07 12:18] LABS: Ferritin 183 ng/mL (7.3-270.7); Iron 60 mcg/dL (50-170); Percent Iron Saturation 22 % (20-55); Total Iron Binding Capacity 271 mcg/dL (250-425); Unsaturated Iron Binding 211 (225-295)
[2025-01-07 12:23] LABS: Folate > 24.00 ng/mL (>5.38); Vitamin B12 484 pg/mL (211-911)
--- NOTE | 2025-01-10 13:50 | CTCFLWUP_ITS ---
Patient: ADAL SCHWARZ : 1950 Page 2 of 2 FOLLOW UP NOTE DATE OF SERVICE: 01/10/2025 NAME: ADAL SCHWARZ ACCOUNT: [id number] : 1950 AGE: 75 INTERVAL HISTORY: Patient is doing well. No abdominal pain . ONCOLOGY HISTORY:?[facility] Hx? DIAGNOSIS: Iron deficiency anemia, unspecified [ICD10] D50.9; Malignant neoplasm of rectum [ICD10] C20 DATE OF DIAGNOSIS: synchronous stage I (T2, NX, cM 0) pT2, NX well-differentiated rectal adenocarcinoma S/p transanal excision of the rectal adenocarcinoma (06/19/2023) Stage IIa (PT3, N0, cM0) moderately differentiated adenocarcinoma of the ascending colon, S/p right hemicolectomy (08/15/2023) S/p adjuvant chemoradiati on therapy for the rectal area with Capecitabine as radiosensitizing agent. Unfortunately Ms. Schwarz was not able to take the Capecitabine due to CRF. According to her she only take 2 weeks worth of Capecitabine. Currently on adjuvant 5-FU and leucovorin (02/12/2024??) Chronic renal insufficiency Type 2 diabetes currently on insulin. Left leg dvt on eliquis History of peripheral neuropathy. STAGE/TNM: synchronous stage I (T2, NX, cM 0) pT2, NX well-differentiated rectal adenocarcinoma S/p transanal excision of the rectal adenocarcinoma (06/19/2023) Stage IIa (PT3, N0, cM0) moderately differentiated adenocarcinoma of the ascending colon, S/p right hemicolectomy (08/15/2023) TREATMENT HISTORY: Care?Plan Start?Date Cycle Day Intent INJECTAFER 09/25/2023 1 14 Palliative 5?FU?and?leucovorin 02/12/2024 1 56 Curative?(adjuvant) HISTORY OF PRESENT ILLNESS: Adal Schwarz is a 75-year-old ENG speaking female with history of type 2 diabetes currently on insulin, peripheral neuropathy for at least last 5 years and lower extremities started having rectal bleeding in April 2023. Patient also lost about 20 pounds in last 1 year. 05/27/2023: Ms. Schwarz had a colonoscopy done Patient: ADAL SCHWARZ 06/19/2023: Ms. Schwarz had a full-thickness transanal excision of the rectal tumor Patient: ADAL SCHWARZApril 08/15/2023: Ms. Schwarz had right hemicolectomy 11/19/2023 - 12/26/2023: Ms. Schwarz had adjuvant chemoradiation therapy to the rectal cancer. Unfortunately she was not able to take full course of Capecitabine. According to Ms. Schwarz she only took 2 weeks worth of Capecitabine. 10/22/2023: PET/CT scan? 02/05/2024: PET/CT scan? 02/12/2024: Started on adjuvant 5-FU and leucovorin. OTHER MEDICAL HISTORY/CONDITIONS: HYPERTENSION DIBETES TYPE 2 PANCREATITIS / COLON CANCER DX KIDNEY STONES RHEUMATIC FEVER 1961 HERNIA LAPARASCOPIC ASSISTED RIGHT COLECTOMY (08/15/2023) COLONOSCOPY () HERNIA SX REPAIR (05/16/2020) HYSTERECTOMY (1978) VENA SEAL BILATERAL LEG DR RAMIREZ 02/2020 EYELID SURGERY 09/2002 CERVICAL EPIDURAL 10/2020 REMOVAL OF TUBES AND OVARIES 05/2022 RECTAL CANCER SX 06/26/2023 APPENDECTOMY 196 SX BILATERAL HAMMERTOES 09/06/2019 BLADDER LEFT/REPAIR RECTUM AND VAGINA 01/2019 REMOVAL OF KIDNEY STONES LEFT SIDE STENT 09/2018 PANCREATIC PSEUDOCYST 03/2018 UMBILICAL HERNIA 05/2017 REMOVAL KIDNEY STONE RIGHT SIDE/ STENT PLACED 04/2015 CHOLECYSTECTOMY 03/2011 BLADDER REPAIR [place] 01/2003 TONSILLECTOMY 1963 FAMILY HISTORY: Father: FATHER BLADDER CANCER, NASAL TUMOR Mother:?MOTHER?LUNG?CANCER Sibling:?DENIES Children:?DENIES Cancer History:?RECTAL CANCER DX 05/2023 SOCIAL HISTORY: 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 amlodipine - 5 mg 1 tab Daily 2. apixaban - 5 mg (74 tabs) 1 tab as per instructions 3. calcium - 600 mg 1 tab Twice a Day 4. cloNIDine - 0.2 mg/24 hr 1 Patch Weekly 5. HumaLOG KwikPen Insulin - 100 unit/mL As directed 6. Lantus - 100 unit/mL 13 Unit In the evening 7. Lomotil - 2.5-0.025 mg 1 tab one po four times a day prn diarrhea 8. Triamterene W/Hctz - 37.5-25 mg 1 tab Daily 9. valsartan - 320 mg 1 tab Daily 10. Vitamin C - 1,000 mg 1 Capsule 11. Vitamin D2 - 1,000 unit 1 Capsule Daily?Palabra Meds? Medications Last Reconciled by Neema Dalton MA on 01/10/2025 ALLERGIES: Penicillin V; Penicillin V; MIDAZOLAM HCL REVIEW OF SYSTEMS: A complete 14-point review of systems was performed and is negative except as noted in interval history. PHYSICAL EXAMINATION:?[facility] PE? VITAL SIGNS: Temperature?98.5, B/P?117/73, Oxygen?Saturation?93% Weight?159?lbs (Change?since?01/07/25:?-2?lbs) PAIN: 0 - No pain ECOG Performance Status: 1 - Symptomatic; ambulatory; restricted in strenuous activity General Examination alert oriented x 4 CHEST: Clear to auscultation. No wheezes or rales audible. CARDIAC: Rhythm regular, no murmurs or gallops present. ABDOMEN: Soft. No hepatomegaly. No splenomegaly. EXTREMITIES: At least 2+ pitting edema LABORATORY DATA: I have personally reviewed and interpreted each of the patient?s relevant lab tests, abnormal findings are below: Date 01/07/25 ??WHITE?BLOOD?COUNT?(Thou/mm3) 4.8 ??RED?BLOOD?COUNT?(Miln/mm3) 3.93?L ??HEMOGLOBIN?(gm/dl) 11.4?L ??HEMATOCRIT?(%) 35.5?L ??PLATELET?COUNT?(Thou/mm3) 127?L ??NEUTROPHILS?%,?AUTO?(%) 68 ??LYMPH?%,?AUTO?(%) 17 ??NEUTROPHILS,?AUTO?(Thou/mm3) 3.2 ??GLUCOSE,RANDOM?(mg/dL) 232?H ??BLOOD?UREA?NITROGEN?(mg/dL) 54?H ??CREATININE?(mg/dL) 1.80?H ??SODIUM?(mmol/L) 138 ??POTASSIUM?(mmol/L) 5.0 ??CHLORIDE?(mmol/L) 107 ??CrCl?(CandG)?(ml/min) 26.73 ??AST/SGOT?(Unit/L) 13 ??ALT/SGPT?(Unit/L) 15 ??ALKALINE?PHOSPHATASE?(Unit/L) 129?H ??BILIRUBIN,?TOTAL?(mg/dL) 0.4 ??PROTEIN?TOTAL?(gm/dl) 6.7 ??ALBUMIN,?SERUM?(gm/dl) 4.1 ??GLOBULIN?(gm/dl) 2.6 ??ALBUMIN/GLOBULIN?RATIO 1.6 ??CALCIUM,?SERUM?(mg/dL) 8.9 ??CALCIUM?SERUM?(CORRECTED)?(mg/dL) 8.9 ??LDH,?TOTAL?(Unit/L) 198 ??TOTAL?IRON?BINDING?CAP?(S*)?(mcg/dL) 271 ??UNBOUND?IBC?(mcg/dL) 211?L ASSESSMENT/PLAN:?Andriy Kohli Assessment/Plan? 1) synchronous stage I (T2, NX, cM 0) pT2, NX well-differentiated rectal adenocarcinoma S/p transanal excision of the rectal adenocarcinoma (06/19/2023) 2) Stage IIa (PT3, N0, cM0), pMMR, moderately differentiated adenocarcinoma of the ascending colon, S/p right hemicolectomy (08/15/2023) Ms. Schwarz completed adjuvant chemoradiation of the rectal cancer on 12/26/2023. Unfortunately she was not able to take Capecitabine for the full course of radiation. According Ms. Schwarz she only took Capecitabine for about 2 weeks. 01/2024 on adjuvant chemotherapy with 5-FU and leucovorin. Completed 8-9 months of adjuvant therapy with some breaks and atleast 6 months of chemo . - Stopped chemotherapy on 11/18/2024 . no further chemotherapy - I reviewed MRI abdomen and pelvis no recurrence - #3 DVT on Eliquis Will do ultrasound of the leg to see clot to evaluate DVT 3) Bilary duct stones REFERRED TO [facility] ORDERS: Order # Description [id number] RETURN TO CLINIC: I will see her back in the clinic in 2 months. BILLING AND COMPLIANCE: I reviewed external records from providers outside my specialty as summarized above. I spent a total of 50 minutes on this patient?s care on the day of their visit excluding time spent related to any billed procedures. This time includes time spent with the patient as well as time spent documenting in the medical record, reviewing patients records and tests, obtaining history, placing orders, communicating with other healthcare professionals, counseling the patient, family or caregiver, and/or care coordination for the diagnoses above. Electronically Signed by: Dean Kohli MD T: 1:48 PM CC: PCP: Duran Briseno Referring: Duran Briseno This document was completed utilizing speech recognition software. Grammatical errors, random word insertions, pronoun errors, and incomplete sentences are an occasional consequence of this system due to software limitations, ambient noise, and hardware issues. Any formal questions or concerns about the content, text or information contained within the body of this dictation should be directly addressed to the provider for clarification.
[2025-01-13 06:58] LABS: Haptoglobin* 164 mg/dL (43-212)
== END 2025-01-24 23:59 | disposition home or self-care (01) ==
LOC: SCTC 08:14
PROVIDERS: Internal Medicine Hematology & Oncology; PCP Family Medicine; Referring Provider Family Medicine; Visit Provider Radiology Therapeutic Radiology
DX: C18.2 Malignant neoplasm of ascending colon (principal); C20 Malignant neoplasm of rectum; R74.8 Abnormal levels of other serum enzymes; Z90.49 Acquired absence of other specified parts of digestive tract; Z92.3 Personal history of irradiation; N18.9 Chronic kidney disease, unspecified; R93.5 Abnormal findings on diagnostic imaging of other abdominal regions, including retroperitoneum
CPT/HCPCS: 36591; 80053; 82378; 82607; 82728; 82746; 83010; 83540; 83550; 83615; 85025; 99212; A4216; J1642; G0463

== ENCOUNTER → 2025-01-19 | Outpatient (CLI) | payer MEDICARE, BC, SELFPAY ==
--- NOTE | 2025-01-19 14:30 | ECHO_ITS ---
Transthoracic Echo Report Ht (in): 64 Wt (lb): 150 Exam Location: Echo Lab Status: Preadmit Medical Surgical Tech: NAI David^^^^ Indications: Procedure Performed: BP: 117 / 69 HR: Rhythm: Sinus Technical Quality: Fair MEASUREMENTS (Male / Female) Normal Values 2D ECHO LV Diastolic Diameter PLAX 4.4 cm 4.2 - 5.9 / 3.9 - 5.3 cm LV Systolic Diameter PLAX 2.9 cm IVS Diastolic Thickness 1.3 cm 0.6 - 1.0 / 0.6 - 0.9 cm LVPW Diastolic Thickness 1.0 cm 0.6 - 1.0 / 0.6 - 0.9 cm LV Relative Wall Thickness 0.5 LVOT Diameter 1.8 cm Aortic Root Diameter 3.2 cm LA Systolic Diameter LX 4.3 cm 3.0 - 4.0 / 2.7 - 3.8 cm LV Ejection Fraction MOD 4C 62.5 % LV Ejection Fraction 4C AL 63.8 % LA Volume Index 32.3 cm?/m? 16 - 28 cm?/m? Ascending Aorta Diameter 2.9 cm DOPPLER AV Peak Velocity 117.0 cm/s AV Peak Gradient 5.5 mmHg AV Mean Gradient 3.0 mmHg AV Velocity Time Integral 25.2 cm AI Peak Velocity 280.0 cm/s AI Peak Gradient 31.4 mmHg AI Pressure Half Time 987.5 ms LVOT Peak Velocity 95.3 cm/s LVOT Peak Gradient 3.6 mmHg LVOT Velocity Time Integral 28.1 cm AV Area Cont Eq vti 2.8 cm? AV Area Cont Eq pk 2.1 cm? MV Area PHT 2.2 cm? MR Peak Velocity 414.0 cm/s MR Peak Gradient 68.6 mmHg Mitral E Point Velocity 62.1 cm/s Mitral A Point Velocity 83.5 cm/s Mitral E to A Ratio 0.7 TR Peak Velocity 252.5 cm/s TR Peak Gradient 25.5 mmHg PV Peak Velocity 84.6 cm/s PV Peak Gradient 2.9 mmHg RVOT Peak Velocity 56.2 cm/s FINDINGS Left Ventricle There is mild concentric left ventricular hypertrophy. The left ventricular ejection fraction is normal, estimated at 55-60%. There is grade I diastolic dysfunction of the left ventricle (impaired relaxation pattern). Right Ventricle The right ventricle is normal in size and systolic function. The estimated right ventricular systolic pressure, 43 mmHg. Left Atrium The left atrium is normal by two-dimensional, color flow and Doppler imaging with no structural abnormalities, no thrombus formation present. Right Atrium The right atrium is normal by two-dimensional imaging, color flow and Doppler imaging with no structural abnormalities, no thrombus formation present. Atrial Septum The interatrial septum appears normal with no evidence of a shunt. Aorta The aorta is normal by two-dimensional, color flow and Doppler interrogation. Mitral Valve Mild mitral regurgitation. Mild thickening of the mitral valve leaflets. Mitral annular calcification. Aortic Valve Aortic valve sclerosis. Mild aortic valve regurgitation. Tricuspid Valve There is mild tricuspid valve regurgitation. Pulmonic Valve Trivial pulmonic valve regurgitation. Vessels The pulmonary artery appears normal. The inferior vena cava pulmonary and hepatic veins appear normal. Pericardium The pericardium is normal by two-dimensional imaging. There is no significant pericardial effusion. CONCLUSIONS indication: Cancer center LV appears normal with mild LVH EF 55-60%. Diastolic Dysfunction I. RV appears normal with RVSP 43 mmHg. Mild MR & MAC Sclerotic AOV with Mild AI mild TR Kirk Amaya (Electronically Signed) Final Date: 19 January 2025 16:28
== END | disposition home or self-care (01) ==
LOC: SDIM 14:09
PROVIDERS: PCP Family Medicine; Referring Provider Internal Medicine Hematology & Oncology; Visit Provider Internal Medicine Hematology & Oncology
DX: I08.3 Combined rheumatic disorders of mitral, aortic and tricuspid valves (principal)
CPT/HCPCS: 93306

== ENCOUNTER → 2025-01-27 | Outpatient (CLI) | payer MEDICARE, BC, SELFPAY ==
--- NOTE | 2025-01-27 14:10 | XR_ITS ---
Examination: Bone densitometry Date and time of exam:January 27, 2025 1406 hours INDICATIONS: Hysterectomy age 31, rheumatoid arthritis diagnosis, diabetic, personal history osteopenia Technique: Lumbar spine and hip total bone mineralization values of an calculated. Peak reference and age match control results have been displayed. Findings: Lumbar spine total bone mineralization is0.915 gm/cm2. This is 1.2 standard deviations below peak reference. This is 1.2 standard deviations above age-matched controls. Hip total bone mineralization is 0.733 gm/cm2 This is 1.7 standard deviations below peak reference. This is 0.1 standard deviations above age-matched controls Impression: There is osteopenia based on lumbar spine measurements. There is osteoporosis based on hip measurements Lumbar mineralization is decreased 4.7% compared with January 31, 2022 Hip mineralization is decreased 10.8% compared with January 31, 2022
== END | disposition home or self-care (01) ==
LOC: CDIM 13:49
PROVIDERS: PCP Family Medicine; Referring Provider Internal Medicine Hematology & Oncology; Visit Provider Internal Medicine Hematology & Oncology
DX: M85.88 Other specified disorders of bone density and structure, other site (principal); M81.0 Age-related osteoporosis without current pathological fracture; C20 Malignant neoplasm of rectum; C18.9 Malignant neoplasm of colon, unspecified
CPT/HCPCS: 77080

== ENCOUNTER → 2025-02-02 | Outpatient (CLI) | payer MEDICARE, BC, SELFPAY ==
--- NOTE | 2025-02-02 13:50 | XR_ITS ---
Examination: Duplex scan of the lower extremity, unilateral left complete Date and time of exam: February 02, 2025 1407 hrs. Indications: Leg mammogram 07/08/2024 positive for acute thrombus left posterior tibial vein Technique: Duplex scan of the extremity veins using B-mode/grayscale imaging and Doppler spectral analysis and color flow Attention is directed to internal echogenicity, compression and augmentation involving these veins, color flow assessment, spectral analysis Findings: Major deep venous structures in the extremity demonstrate normal course and caliber. There is no evidence of deep vein thrombosis. Normal color flow and spectral analysis Positive for nonocclusive thrombus in the superficial greater saphenous vein Impression: Negative for DVT..
== END | disposition home or self-care (01) ==
LOC: SDIM 13:45
PROVIDERS: PCP Family Medicine; Referring Provider Internal Medicine Hematology & Oncology; Visit Provider Internal Medicine Hematology & Oncology
DX: C18.9 Malignant neoplasm of colon, unspecified (principal); C20 Malignant neoplasm of rectum
CPT/HCPCS: 93971

== ENCOUNTER → 2025-03-08 | Outpatient (CLI) | payer MEDICARE, BC, SELFPAY ==
[2025-03-08 10:34] LABS: Basophils % (Auto) 1 % (0-2.5); Eosinophils # (Auto) 0.4 Thou/mm3 (0.0-0.5); Eosinophils % (Auto) 7 % (0-10); Hematocrit 38.2 % (36.0-46.0); Hemoglobin 12.4 g/dL (12.0-16.0); Immature Granulocytes % (Auto) 0 % (0-0); Immature Granulocytes Auto 0.01 Thou/mm3 (0.00-0.00); Lymphocytes # (Auto) 0.9 Thou/mm3 (1.0-4.8); Lymphocytes % (Auto) 18 % (10-50); Mean Corpuscular HGB Conc 32.5 g/dl (31.0-37.0); Mean Corpuscular Hemoglobin 28.9 pg (25.0-35.0); Mean Corpuscular Volume 89 fL (80-100); Monocytes # (Auto) 0.4 Thou/mm3 (0.0-0.8); Monocytes % (Auto) 7 % (0-12); Neutrophils # (Auto) 3.5 Thou/mm3 (1.8-7.7); Neutrophils % (Auto) 67 % (37-80); Nucleated Red Blood Cell % 0 /100 WBC (0); Platelet Count 142 Thou/mm3 (140-440); RDW Standard Deviation 42.3 fL (36.4-46.3); Red Blood Count 4.29 Miln/mm3 (4.00-5.20); White Blood Count 5.3 Thou/mm3 (3.6-11.0)
[2025-03-08 11:03] LABS: Albumin, Serum 4.2 gm/dL (3.4-4.8); Anion Gap 10 (7-16); BUN/Creatinine Ratio 27 Ratio (12-20); Blood Urea Nitrogen 43 mg/dL (9-23); Calcium 8.6 mg/dL (8.3-10.6); Calcium (Corrected) 8.6 mg/dL (8.5-10.1); Carbon Dioxide 22.9 mMol/L (20.0-31.0); Chloride 107 mMol/L (98-107); Creatinine (Component) 1.6 mg/dL (0.6-1.3); Glucose 106 mg/dL (74-106); Osmolality,Calculated 290 (275-295); Phosphorous 4.3 mg/dL (2.4-5.1); Potassium 5.3 mMol/L (3.4-5.1); Sodium 140 mMol/L (136-145); eGFR 33 See Note
[2025-03-08 11:06] LABS: Vitamin D 25 Hydroxy Total 33.7 ng/mL (7.3-40.2)
[2025-03-08 11:14] LABS: Iron 36 mcg/dL (50-170); Percent Iron Saturation 13 % (20-55); Total Iron Binding Capacity 275 mcg/dL (250-425); Unsaturated Iron Binding 239 (225-295)
[2025-03-08 11:16] LABS: Glucose Estimated Average 131 mg/dL (80-131); Hemoglobin A1C 6.2 % Hgb (4.8-6.0)
== END | disposition home or self-care (01) ==
LOC: COPL 09:05
PROVIDERS: PCP Family Medicine; Referring Provider Internal Medicine Nephrology; Visit Provider Internal Medicine Nephrology
DX: E11.22 Type 2 diabetes mellitus with diabetic chronic kidney disease (principal); N18.32 Chronic kidney disease, stage 3b; D63.1 Anemia in chronic kidney disease
CPT/HCPCS: 36415; 80069; 81001; 82306; 83036; 83540; 83550; 83970; 85025

== ENCOUNTER 2025-03-15 13:21 | Outpatient (RCR) | payer MEDICARE, BC, SELFPAY ==
[2025-03-14 09:07] LABS: Basophils % (Auto) 1 % (0-2.5); Eosinophils # (Auto) 0.3 Thou/mm3 (0.0-0.5); Eosinophils % (Auto) 6 % (0-10); Hematocrit 37.3 % (36.0-46.0); Hemoglobin 12.7 g/dL (12.0-16.0); Immature Granulocytes % (Auto) 0 % (0-0); Immature Granulocytes Auto 0.01 Thou/mm3 (0.00-0.00); Lymphocytes # (Auto) 1.3 Thou/mm3 (1.0-4.8); Lymphocytes % (Auto) 24 % (10-50); Mean Corpuscular Hemoglobin 29.9 pg (25.0-35.0); Mean Corpuscular Volume 88 fL (80-100); Monocytes # (Auto) 0.5 Thou/mm3 (0.0-0.8); Monocytes % (Auto) 10 % (0-12); Neutrophils # (Auto) 3.2 Thou/mm3 (1.8-7.7); Neutrophils % (Auto) 60 % (37-80); Nucleated Red Blood Cell % 0 /100 WBC (0); Platelet Count 162 Thou/mm3 (140-440); RDW Standard Deviation 42.5 fL (36.4-46.3); Red Blood Count 4.25 Miln/mm3 (4.00-5.20); White Blood Count 5.3 Thou/mm3 (3.6-11.0)
[2025-03-14 09:29] LABS: Alanine Aminotransferase 24 U/L (10-49); Albumin, Serum 4.2 gm/dL (3.4-4.8); Albumin/Globulin Ratio 1.8 (1.2-2.2); Alkaline Phosphatase 135 U/L (46-116); Anion Gap 8 (7-16); Aspartate Amino Transferase 26 U/L (0-34); BUN/Creatinine Ratio 19 Ratio (12-20); Bilirubin,Total 0.3 mg/dL (0.3-1.2); Blood Urea Nitrogen 39 mg/dL (9-23); Calcium 8.8 mg/dL (8.3-10.6); Calcium (Corrected) 8.8 mg/dL (8.5-10.1); Carbon Dioxide 24.9 mMol/L (20.0-31.0); Chloride 109 mMol/L (98-107); Creatinine (Component) 2.1 mg/dL (0.6-1.3); Globulin 2.4 gm/dL (2.3-3.5); Glucose 117 mg/dL (74-106); Osmolality,Calculated 293 (275-295); Potassium 4.8 mMol/L (3.4-5.1); Sodium 142 mMol/L (136-145); Total Protein 6.6 gm/dL (5.7-8.2); eGFR 24 See Note
[2025-03-14 09:32] LABS: Carcinoembryonic Antigen 3.4 ng/mL (0.0-5.0)
[2025-03-14 09:40] LABS: Folate > 24.00 ng/mL (>5.38); Vitamin B12 628 pg/mL (211-911)
[2025-03-14 09:52] LABS: Ferritin 156 ng/mL (7.3-270.7); Iron 50 mcg/dL (50-170); Percent Iron Saturation 18 % (20-55); Total Iron Binding Capacity 272 mcg/dL (250-425); Unsaturated Iron Binding 222 (225-295)
--- NOTE | 2025-03-22 23:16 | CTCFLWUP_ITS ---
Patient: ADAL SCHWARZ : 1950 Page 4 of 7 FOLLOW UP NOTE DATE OF SERVICE: 03/15/2025 NAME: ADAL SCHWARZ ACCOUNT: [id number] : 1950 AGE: 75 INTERVAL HISTORY: Summary--- Adal, a 75yo female, presented for DVT follow-up and medication management. Her history includes stage 1 cancer (completed capecitabine in October 2023) and DVT in left peroneal and posterior tibial veins (diagnosed May 2024). Recent bone density scan showed significant decline in minera lization. Eliquis was discontinued after completing 6+ months of therapy. Plan includes port removal, DVT precautions education, continuing cancer surveillance with quarterly blood tests, and starting osteoporosis medication after completing scheduled dental work. Subjective: Chief Complaint Follow-up for DVT treatment, discussion about stopping Eliquis, consultation for dental procedure, review of recent test results History of Present Illness Adal Schwarz, a 75-year-old female with a history of stage 1 cancer and deep vein thrombosis (DVT), presents for follow-up. She reports no current pain and denies any symptoms related to her previous cancer diagnosis. The patient had a DVT in her left leg approximately 6-7 months ago, specifically in the left peroneal and left posterior tibial veins. She attributes this to her driving habits, as she frequently drives for 3 hours straight without stopping when visiting her children. She was started on Eliquis by Dr. Ruiz in May 2024 for DVT treatment. The patient has completed more than 6 months of anticoagulation therapy and is now eligible to discontinue it. Regarding her cancer history, the patient reports having completed chemotherapy on November 11, 2023, after taking capecitabine for 2 weeks. She stopped chemotherapy on October 13, 2023. The patient mentions having a port, which is now being considered for removal as she is no longer undergoing active cancer treatment. The patient discusses recent diagnostic tests, including a blood test she had done yesterday. There was some confusion about this test, as she was told that someone had called and said she would have it at home, which she denies. She also mentions having an ERCP referral done a long time ago due to suspected biliary tract obstruction. In terms of lifestyle changes, the patient reports improvements in her diet. She has reduced her meat consumption and now frequently eats grilled vegetables and salads, with occasional chicken. However, she admits she's not quite off the meat entirely. The patient denies having any current pain or symptoms related to her previous cancer diagnosis. She also mentions that her Signatura test is negative, indicating no evidence of cancer recurrence. Medications and Supplements - Eliquis - Started in May 2024 for DVT in left peroneal and left posterior tibial veins. - Completed more than 6 months of treatment. - Capecitabine - Taken for 2 weeks in October 2023. - Discontinued on November 11, 2023. - Calcium - Vitamin D - Not absorbing well. - Advised to take with fatty food. Review of Systems Musculoskeletal: Negative for pain. Cardiovascular: Positive for history of blood clot in left leg. Objective: Laboratory, Imaging, and Diagnostic Test Results - Date: 01/27/2025 - Bone Density Scan: - Lumbar mineralization: decreased 4.7% compared to 2021 - Hip mineralization: decreased 10.8% compared to 2021 - Date: 05/2024 - Venous Doppler Ultrasound: Positive for occlusive acute deep vein thrombosis in the left peroneal and left posterior tibial veins - Recent (date not specified): - Signatura test: Negative - Recent (date not specified): - Complete Blood Count (CBC): No longer anemic ONCOLOGY HISTORY: DIAGNOSIS: Iron deficiency anemia, unspecified [ICD10] D50.9; Malignant neoplasm of rectum [ICD10] C20 DATE OF DIAGNOSIS: synchronous stage I (T2, NX, cM 0) pT2, NX well-differentiated rectal adenocarcinoma S/p transanal excision of the rectal adenocarcinoma (06/19/2023) Stage IIa (PT3, N0, cM0) moderately differentiated adenocarcinoma of the ascending colon, S/p right hemicolectomy (08/15/2023) S/p adjuvant chemoradiati on therapy for the rectal area with Capecitabine as radiosensitizing agent. Unfortunately Ms. Schwarz was not able to take the Capecitabine due to CRF. According to her she only take 2 weeks worth of Capecitabine. Currently on adjuvant 5-FU and leucovorin (02/12/2024??) Chronic renal insufficiency Type 2 diabetes currently on insulin. Left leg dvt on eliquis History of peripheral neuropathy. STAGE/TNM: synchronous stage I (T2, NX, cM 0) pT2, NX well-differentiated rectal adenocarcinoma S/p transanal excision of the rectal adenocarcinoma (06/19/2023) Stage IIa (PT3, N0, cM0) moderately differentiated adenocarcinoma of the ascending colon, S/p right hemicolectomy (08/15/2023) TREATMENT HISTORY: Care?Plan Start?Date Cycle Day Intent INJECTAFER 09/25/2023 1 14 Palliative 5?FU?and?leucovorin 02/12/2024 1 56 Curative?(adjuvant) HISTORY OF PRESENT ILLNESS: Adal Schwarz is a 75-year-old ENG speaking female with history of type 2 diabetes currently on insulin, peripheral neuropathy for at least last 5 years and lower extremities started having rectal bleeding in April 2023. Patient also lost about 20 pounds in last 1 year. 05/27/2023: Ms. Schwarz had a colonoscopy done Patient: ADAL SCHWARZ. 06/19/2023: Ms. Schwarz had a full-thickness transanal excision of the rectal tumor Patient: ADAL SCHWARZ. 08/15/2023: Ms. Schwarz had right hemicolectomy 11/19/2023 - 12/26/2023: Ms. Schwarz had adjuvant chemoradiation therapy to the rectal cancer. Unfortunately she was not able to take full course of Capecitabine. According to Ms. Schwarz she only took 2 weeks worth of Capecitabine. 10/22/2023: PET/CT scan? 02/05/2024: PET/CT scan? 02/12/2024: Started on adjuvant 5-FU and leucovorin. OTHER MEDICAL HISTORY/CONDITIONS: HYPERTENSION DIBETES TYPE 2 PANCREATITIS / COLON CANCER DX KIDNEY STONES RHEUMATIC FEVER 1961 HERNIA LAPARASCOPIC ASSISTED RIGHT COLECTOMY (08/15/2023) COLONOSCOPY () HERNIA SX REPAIR (05/16/2020) HYSTERECTOMY (1978) VENA SEAL BILATERAL LEG DR RAMIREZ 02/2020 EYELID SURGERY 09/2002 CERVICAL EPIDURAL 10/2020 REMOVAL OF TUBES AND OVARIES 05/2022 RECTAL CANCER SX 06/26/2023 APPENDECTOMY 196 SX BILATERAL HAMMERTOES 09/06/2019 BLADDER LEFT/REPAIR RECTUM AND VAGINA 01/2019 REMOVAL OF KIDNEY STONES LEFT SIDE STENT 09/2018 PANCREATIC PSEUDOCYST 03/2018 UMBILICAL HERNIA 05/2017 REMOVAL KIDNEY STONE RIGHT SIDE/ STENT PLACED 04/2015 CHOLECYSTECTOMY 03/2011 BLADDER REPAIR [place] 01/2003 TONSILLECTOMY 1963 FAMILY HISTORY: Father: FATHER BLADDER CANCER, NASAL TUMOR Mother:?MOTHER?LUNG?CANCER Sibling:?DENIES Children:?DENIES Cancer History:?RECTAL CANCER DX 05/2023 SOCIAL HISTORY: 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 amlodipine - 5 mg 1 tab Daily 2. apixaban - 5 mg (74 tabs) 1 tab as per instructions 3. calcium - 600 mg 1 tab Twice a Day 4. cloNIDine - 0.2 mg/24 hr 1 Patch Weekly 5. Eliquis - 5 mg 1 tab Daily 6. HumaLOG KwikPen Insulin - 100 unit/mL As directed 7. Lantus - 100 unit/mL 13 Unit In the evening 8. Lomotil - 2.5-0.025 mg 1 tab one po four times a day prn diarrhea 9. Triamterene W/Hctz - 37.5-25 mg 1 tab Daily 10. valsartan - 320 mg 1 tab Daily 11. Vitamin C - 1,000 mg 1 Capsule 12. Vitamin D2 - 1,000 unit 1 Capsule Daily Medications Last Reconciled by Alexa Jane MA on 03/15/2025 ALLERGIES: Penicillin V; Penicillin V; MIDAZOLAM HCL REVIEW OF SYSTEMS: A complete 14-point review of systems was performed and is negative except as noted in interval history. PHYSICAL EXAMINATION: VITAL SIGNS: Temperature?98.2, B/P?121/73, Oxygen?Saturation?98% Weight?159?lbs (Change?since?03/14/25:?0.6?lbs) PAIN: 0 - No pain ECOG Performance Status: 0 - Asymptomatic and fully active General Examination alert oriented x 4 CHEST: Clear to auscultation. No wheezes or rales audible. CARDIAC: Rhythm regular, no murmurs or gallops present. ABDOMEN: Soft. No hepatomegaly. No splenomegaly. EXTREMITIES: At least 2+ pitting edema LABORATORY DATA: I have personally reviewed and interpreted each of the patient?s relevant lab tests, abnormal findings are below: Date 03/14/25 ??WHITE?BLOOD?COUNT?(Thou/mm3) 5.3 ??RED?BLOOD?COUNT?(Miln/mm3) 4.25 ??HEMOGLOBIN?(gm/dl) 12.7 ??HEMATOCRIT?(%) 37.3 ??PLATELET?COUNT?(Thou/mm3) 162 ??NEUTROPHILS?%,?AUTO?(%) 60 ??LYMPH?%,?AUTO?(%) 24 ??NEUTROPHILS,?AUTO?(Thou/mm3) 3.2 ??GLUCOSE,RANDOM?(mg/dL) 117?H ??BLOOD?UREA?NITROGEN?(mg/dL) 39?H ??CREATININE?(mg/dL) 2.10?H ??SODIUM?(mmol/L) 142 ??POTASSIUM?(mmol/L) 4.8 ??CHLORIDE?(mmol/L) 109?H ??CrCl?(CandG)?(ml/min) 26.25 ??AST/SGOT?(Unit/L) 26 ??ALT/SGPT?(Unit/L) 24 ??ALKALINE?PHOSPHATASE?(Unit/L) 135?H ??BILIRUBIN,?TOTAL?(mg/dL) 0.3 ??PROTEIN?TOTAL?(gm/dl) 6.6 ??ALBUMIN,?SERUM?(gm/dl) 4.2 ??GLOBULIN?(gm/dl) 2.4 ??ALBUMIN/GLOBULIN?RATIO 1.8 ??CALCIUM,?SERUM?(mg/dL) 8.8 ??CALCIUM?SERUM?(CORRECTED)?(mg/dL) 8.8 ??CEA?(O*)?(ng/ml) 3.4 ??TOTAL?IRON?BINDING?CAP?(S*)?(mcg/dL) 272 ??UNBOUND?IBC?(mcg/dL) 222?L ASSESSMENT/PLAN: Adal Schwarz, a 75-year-old female with a history of stage 1 cancer, deep vein thrombosis (DVT), and osteoporosis, presenting for follow-up and management of multiple medical issues. 1) synchronous stage I (T2, NX, cM 0) pT2, NX well-differentiated rectal adenocarcinoma S/p transanal excision of the rectal adenocarcinoma (06/19/2023) 2) Stage IIa (PT3, N0, cM0), pMMR, moderately differentiated adenocarcinoma of the ascending colon, S/p right hemicolectomy (08/15/2023) Ms. Schwarz completed adjuvant chemoradiation of the rectal cancer on 12/26/2023. Unfortunately she was not able to take Capecitabine for the full course of radiation. According Ms. Schwarz she only took Capecitabine for about 2 weeks. 01/2024 on adjuvant chemotherapy with 5-FU and leucovorin. Completed 8-9 months of adjuvant therapy with some breaks and atleast 6 months of chemo . - Stopped chemotherapy on 11/18/2024 . no further chemotherapy - I reviewed MRI abdomen and pelvis no recurrence - - - Deep Vein Thrombosis (DVT) - Assessment: Patient was diagnosed with DVT in the left peroneal and left posterior tibial veins in May 2024. She was started on Eliquis (apixaban) by Dr. Ruiz, likely in June 2024. The patient has completed more than 6 months of anticoagulation therapy. She is no longer on chemotherapy, having completed treatment on November 11, 2023. Recent blood work shows resolution of anemia. - Plan: - - Discontinue Eliquis (apixaban) as patient has completed more than 6 months of treatment for DVT - - Educate patient on DVT precautions: - - Avoid prolonged sitting - - Avoid crossing legs while sitting - - Seek immediate medical attention for leg/arm swelling or sudden shortness of breath - - Avoid massaging swollen areas - - Recommend daily walking or use of treadmill/elliptical to improve circulation - - Follow up in 6 months - - Cancer Follow-up - Assessment: Patient has a history of stage 1 cancer, now in remission. She completed chemotherapy with capecitabine on November 11, 2023. Current surveillance includes regular blood tests (likely tumor markers) every 3 months, which have shown high sensitivity (90%) for detecting cancer recurrence. Recent Signatura test was negative, indicating no evidence of cancer at present. - Plan: - - Continue surveillance blood tests every 3 months indefinitely - - Remove port-a-cath to reduce risk of blood clots - - Educate patient on importance of continuing surveillance testing - - Encourage dietary modifications: - - Reduce meat consumption - - Increase intake of grilled vegetables and salads - - Osteoporosis - Assessment: Recent bone density scan completed on January 27, 2025, shows significant decline in bone mineralization. Lumbar mineralization decreased by 4.7% and hip mineralization decreased by 10.8% compared to 2021. The decline may be partly due to poor absorption of vitamin D. - Plan: - - Start osteoporosis medication after completion of dental work - - Continue calcium and vitamin D supplementation - - Recommend taking vitamin D with milk or a teaspoon of olive oil to improve absorption - - Reassess bone density in 6 months - - Dental Issues - Assessment: Patient requires dental work, including tooth extraction. This procedure necessitates temporary discontinuation of anticoagulation therapy. - Plan: - - Coordinate with dental provider for tooth extraction - - Ensure 2-3 days for healing post-extraction before resuming any necessary anticoagulation - - Complete dental work before initiating osteoporosis medication 3) Bilary duct stones REFERRED TO [facility] ORDERS: Order # Description RETURN TO CLINIC: BILLING AND COMPLIANCE: I reviewed external records from providers outside my specialty as summarized above. I spent a total of 50 minutes on this patient?s care on the day of their visit excluding time spent related to any billed procedures. This time includes time spent with the patient as well as time spent documenting in the medical record, reviewing patients records and tests, obtaining history, placing orders, communicating with other healthcare professionals, counseling the patient, family or caregiver, and/or care coordination for the diagnoses above. Electronically Signed by: {Object.Sanct_ID*PnP.NameFL@M}, {Object.Sanct_ID*PnP.Suffix@U} D: {Object.Sanct_Date} T: {Object.Sanct_Time} CC: PCP: Duran Briseno Referring: Duran Briseno This document was completed utilizing speech recognition software. Grammatical errors, random word insertions, pronoun errors, and incomplete sentences are an occasional consequence of this system due to software limitations, ambient noise, and hardware issues. Any formal questions or concerns about the content, text or information contained within the body of this dictation should be directly addressed to the provider for clarification.
== END 2025-03-26 23:59 | disposition home or self-care (01) ==
LOC: SCTC 13:21
PROVIDERS: PCP Family Medicine; Referring Provider Family Medicine; Visit Provider Internal Medicine Hematology & Oncology
DX: Z09 Encounter for follow-up examination after completed treatment for conditions other than malignant neoplasm (principal); Z86.718 Personal history of other venous thrombosis and embolism; Z85.048 Personal history of other malignant neoplasm of rectum, rectosigmoid junction, and anus; M81.0 Age-related osteoporosis without current pathological fracture; K80.50 Calculus of bile duct without cholangitis or cholecystitis without obstruction; Z90.49 Acquired absence of other specified parts of digestive tract; Z92.21 Personal history of antineoplastic chemotherapy
CPT/HCPCS: 36591; 80053; 82378; 82607; 82728; 82746; 83540; 83550; 85025; 99212; G0463

== ENCOUNTER 2025-04-26 06:05 | Day surgery (SDC) | payer MEDICARE, BC, SELFPAY ==
--- NOTE | 2025-04-22 10:04 | EKG_ITS ---
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
[2025-04-22 10:17] VITALS: BMI 27.9
[2025-04-22 12:27] LABS: Basophils # (Auto) 0.0 Thou/mm3 (0.0-0.2); Basophils % (Auto) 1 % (0-2.5); Eosinophils # (Auto) 0.3 Thou/mm3 (0.0-0.5); Eosinophils % (Auto) 5 % (0-10); Hematocrit 38.6 % (36.0-46.0); Hemoglobin 12.7 g/dL (12.0-16.0); Immature Granulocytes Auto 0.02 Thou/mm3 (0.00-0.00); Lymphocytes # (Auto) 1.3 Thou/mm3 (1.0-4.8); Lymphocytes % (Auto) 18 % (10-50); Mean Corpuscular HGB Conc 32.9 g/dl (31.0-37.0); Mean Corpuscular Hemoglobin 28.0 pg (25.0-35.0); Mean Corpuscular Volume 85 fL (80-100); Monocytes # (Auto) 0.5 Thou/mm3 (0.0-0.8); Monocytes % (Auto) 7 % (0-12); Neutrophils # (Auto) 4.9 Thou/mm3 (1.8-7.7); Neutrophils % (Auto) 70 % (37-80); Nucleated Red Blood Cell # 0.00 Thou/mm3 (0.00-0.00); Nucleated Red Blood Cell % 0 /100 WBC (0); Platelet Count 128 Thou/mm3 (140-440); RDW Standard Deviation 42.8 fL (36.4-46.3); Red Blood Count 4.54 Miln/mm3 (4.00-5.20); White Blood Count 7.0 Thou/mm3 (3.6-11.0)
[2025-04-22 12:43] LABS: Alanine Aminotransferase 40 U/L (10-49); Albumin, Serum 4.3 gm/dL (3.4-4.8); Albumin/Globulin Ratio 1.7 (1.2-2.2); Alkaline Phosphatase 121 U/L (46-116); Anion Gap 10 (7-16); Aspartate Amino Transferase 50 U/L (0-34); BUN/Creatinine Ratio 27 Ratio (12-20); Bilirubin,Total 0.4 mg/dL (0.3-1.2); Blood Urea Nitrogen 52 mg/dL (9-23); Calcium 9.5 mg/dL (8.3-10.6); Calcium (Corrected) 9.5 mg/dL (8.5-10.1); Carbon Dioxide 22.1 mMol/L (20.0-31.0); Chloride 108 mMol/L (98-107); Creatinine (Component) 1.9 mg/dL (0.6-1.3); Estimated Creatinine Clearance 24.3 mL/min (>60); Globulin 2.5 gm/dL (2.3-3.5); Glucose 149 mg/dL (74-106); Osmolality,Calculated 296 (275-295); Potassium 5.0 mMol/L (3.4-5.1); Sodium 140 mMol/L (136-145); Total Protein 6.8 gm/dL (5.7-8.2); eGFR 27 See Note
--- NOTE | 2025-04-25 14:38 | SUR.PREOP ---
Pt notified to come in at 0600 tomorrow.
[2025-04-26] VITALS (7 sets, daily range): BP systolic 106–169; BP diastolic 60–91; PULSE 68–87; RESP 15–20; TEMP 36.6–36.9; O2SAT 98–100; BMI 28.0
--- NOTE | 2025-04-26 07:30 | CHAP ---
Visited with patient about her family and had prayer before her procedure.
--- NOTE | 2025-04-26 08:30 | SUR.PHASEI ---
0830 Patient arrived to recovery resting comfortably in the [facility], awake and alert talking with staff, breathing unlabored, vital signs stable, denies pain, dressing intact to right upper chest; dermabond, no bleeding noted, denies nausea, report received from Gian DIOR and Trinidad RN
--- NOTE | 2025-04-26 08:31 | PD.SUROPNT ---
Date of Procedure 04/26/25 Pre Op Diagnosis History of colon and rectal cancer status post chemoradiation Post Op Diagnosis History of colon and rectal cancer status post chemoradiation Procedure Removal of Port-A-Cath Findings No external evidence of infection Procedure Description Patient brought into the operating room in supine position. After administration of general endotracheal anesthesia, patient's right upper chest was prepped and draped in standard surgical manner. The area overlying the Port-A-Cath was anesthetized with half percent Marcaine. An incision was made over the port. Dissection was carried subcutaneous tissue. The capsule surrounding the port was excised circumferentially with electrocautery. A pursestring suture was placed around the insertion site of the catheter and the catheter along with the port were removed. There were no backbleeding noted. Hemostasis was adequate and satisfactory. Soft tissue reapproximated with interrupted suture using 2-0 Vicryl and the incision was closed 4-0 Monocryl subcuticular fashion. Instruments, needles and sponge counts were reported to be correct ?2. Patient tolerated the procedure well. She was extubated, breathing spontaneously and without difficulty and was transferred to postanesthesia care in stable condition. Anesthesia GETA and local Pathology / specimen Other (Port-A-Cath for gross inspection) Estimated Blood Loss 2 Condition Stable Disposition PACU Surgeon Jose Kunz MD Surgical Staff Operation Date: 04/26/25 08:00 Case Staff ELECTRIC DETECTOR OPERATOR: Maciej Deng RNspeech and hearing clinic director: Dexter Desir
--- NOTE | 2025-04-26 09:31 | SUR.PHASEII ---
0931 Patient meets discharge criteria from recovery, awake and alert, breathing unlabored, vital signs stable, denies pain, dressing intact; no bleeding noted, arm sling provided for support, eating jello; tolerating well, denies nausea, assisted with dressing into her clothing by this music writer, discharge instructions given to patient and patients friend, friend signed discharge instructions. Patient given all her belongings prior to discharge, transported via wheelchair and left in a private vehicle.
== END 2025-04-26 09:31 | disposition home or self-care (01) ==
PROVIDERS: Anesthesiology; PCP Family Medicine; Referring Provider Surgery; Visit Provider Surgery
PROC: (CPT 36590; principal; 2025-04-26 08:00)
DX: Z45.2 Encounter for adjustment and management of vascular access device (principal); Z85.048 Personal history of other malignant neoplasm of rectum, rectosigmoid junction, and anus; Z92.21 Personal history of antineoplastic chemotherapy; Z92.3 Personal history of irradiation; Z01.810 Encounter for preprocedural cardiovascular examination
CPT/HCPCS: 36590; 36415; 80053; 85025; 93005; A4217; A4649; J0690; J2250; J2704; J3010; J3490; J7050; J1596

== ENCOUNTER → 2025-06-15 | Outpatient (CLI) | payer MEDICARE, BC, SELFPAY ==
[2025-06-15 09:33] LABS: Basophils # (Auto) 0.1 Thou/mm3 (0.0-0.2); Basophils % (Auto) 1 % (0-2.5); Eosinophils # (Auto) 0.4 Thou/mm3 (0.0-0.5); Eosinophils % (Auto) 7 % (0-10); Hematocrit 39.6 % (36.0-46.0); Hemoglobin 12.5 g/dL (12.0-16.0); Immature Granulocytes Auto 0.03 Thou/mm3 (0.00-0.00); Lymphocytes # (Auto) 1.0 Thou/mm3 (1.0-4.8); Lymphocytes % (Auto) 19 % (10-50); Mean Corpuscular HGB Conc 31.6 g/dl (31.0-37.0); Mean Corpuscular Hemoglobin 27.8 pg (25.0-35.0); Mean Corpuscular Volume 88 fL (80-100); Monocytes # (Auto) 0.5 Thou/mm3 (0.0-0.8); Monocytes % (Auto) 9 % (0-12); Neutrophils # (Auto) 3.5 Thou/mm3 (1.8-7.7); Neutrophils % (Auto) 63 % (37-80); Nucleated Red Blood Cell # 0.00 Thou/mm3 (0.00-0.00); Nucleated Red Blood Cell % 0 /100 WBC (0); Platelet Count 144 Thou/mm3 (140-440); RDW Standard Deviation 47.7 fL (36.4-46.3); Red Blood Count 4.49 Miln/mm3 (4.00-5.20); White Blood Count 5.5 Thou/mm3 (3.6-11.0)
[2025-06-15 09:45] LABS: Alanine Aminotransferase 26 U/L (10-49); Albumin, Serum 4.1 gm/dL (3.4-4.8); Albumin/Globulin Ratio 1.9 (1.2-2.2); Alkaline Phosphatase 118 U/L (46-116); Anion Gap 9 (7-16); Aspartate Amino Transferase 33 U/L (0-34); BUN/Creatinine Ratio 23 Ratio (12-20); Bilirubin,Total 0.3 mg/dL (0.3-1.2); Blood Urea Nitrogen 41 mg/dL (9-23); Calcium 9.6 mg/dL (8.3-10.6); Calcium (Corrected) 9.6 mg/dL (8.5-10.1); Carbon Dioxide 22.0 mMol/L (20.0-31.0); Chloride 108 mMol/L (98-107); Creatinine (Component) 1.8 mg/dL (0.6-1.3); Globulin 2.2 gm/dL (2.3-3.5); Glucose 186 mg/dL (74-106); Osmolality,Calculated 292 (275-295); Potassium 5.2 mMol/L (3.4-5.1); Sodium 139 mMol/L (136-145); Total Protein 6.3 gm/dL (5.7-8.2); eGFR 29 See Note
[2025-06-15 09:50] LABS: Carcinoembryonic Antigen 3.9 ng/mL (0.0-5.0)
[2025-06-20 07:05] LABS: Protein C Antigen, Total* 88 % normal (70-140); Protein S Antigen, Total* 96 % normal (70-140)
== END | disposition home or self-care (01) ==
LOC: SCTO 08:12
PROVIDERS: PCP Family Medicine; Referring Provider Internal Medicine Hematology & Oncology; Visit Provider Internal Medicine Hematology & Oncology
DX: C18.9 Malignant neoplasm of colon, unspecified (principal); D50.9 Iron deficiency anemia, unspecified; C20 Malignant neoplasm of rectum
CPT/HCPCS: 36415; 80053; 82378; 85025; 85302; 85305

== ENCOUNTER → 2025-06-16 | Outpatient (CLI) | payer MEDICARE, BC, SELFPAY ==
--- NOTE | 2025-06-16 08:39 | XR_ITS ---
MRI abdomen, without contrast. MRCP Date and time of exam: June 16, 2025 0955 hours, comparison December 15, 2024 INDICATIONS: History abdominal pain, extrahepatic biliary tract dilatation secondary to common bile duct stones on MRCP December 15, 2024 Technique: Multiple axial and coronal images of the abdomen have been obtained with the Siemens 1.5T MRI scanner. Images obtained included T1 weighted transverse images, T2-weighted transverse images, T2-weighted transverse images fat-suppressed, T2 weighted haste fat suppressed transverse images, T1 weighted images, in and out of phase images, T2-weighted coronal images, breath hold, T2 weighted haze coronal images as well as T2 weighted coronal thick slab images, MRCP. Findings: No focal liver or splenic lesions, hepatomegaly 18 cm Extrahepatic biliary tract dilatation common hepatic duct 15 mm 4 mm 6 mm common bile duct stones coronal image 12 No ascites Aorta normal size No pancreatic edema Atrophic kidneys IMPRESSION: Extrahepatic biliary tract dilatation with 4 mm 6 mm common bile duct stones, recommend ERCP follow-up
== END | disposition home or self-care (01) ==
LOC: SDIM 08:17 → SMRI 08:17
PROVIDERS: Referring Provider Internal Medicine Gastroenterology; Visit Provider Internal Medicine Gastroenterology
DX: K80.50 Calculus of bile duct without cholangitis or cholecystitis without obstruction (principal); K83.8 Other specified diseases of biliary tract
CPT/HCPCS: 74181

== ENCOUNTER → 2025-07-06 | Outpatient (CLI) | payer MEDICARE, BC, SELFPAY ==
[2025-07-06 09:31] LABS: Basophils # (Auto) 0.0 Thou/mm3 (0.0-0.2); Basophils % (Auto) 1 % (0-2.5); Eosinophils # (Auto) 0.4 Thou/mm3 (0.0-0.5); Eosinophils % (Auto) 7 % (0-10); Hematocrit 39.3 % (36.0-46.0); Hemoglobin 12.5 g/dL (12.0-16.0); Immature Granulocytes Auto 0.02 Thou/mm3 (0.00-0.00); Lymphocytes # (Auto) 1.3 Thou/mm3 (1.0-4.8); Lymphocytes % (Auto) 22 % (10-50); Mean Corpuscular HGB Conc 31.8 g/dl (31.0-37.0); Mean Corpuscular Hemoglobin 27.8 pg (25.0-35.0); Mean Corpuscular Volume 87 fL (80-100); Monocytes # (Auto) 0.5 Thou/mm3 (0.0-0.8); Monocytes % (Auto) 9 % (0-12); Neutrophils # (Auto) 3.6 Thou/mm3 (1.8-7.7); Neutrophils % (Auto) 61 % (37-80); Nucleated Red Blood Cell # 0.00 Thou/mm3 (0.00-0.00); Nucleated Red Blood Cell % 0 /100 WBC (0); Platelet Count 150 Thou/mm3 (140-440); RDW Standard Deviation 46.8 fL (36.4-46.3); Red Blood Count 4.50 Miln/mm3 (4.00-5.20); White Blood Count 5.9 Thou/mm3 (3.6-11.0)
[2025-07-06 09:46] LABS: Glucose Estimated Average 148 mg/dL (80-131); Hemoglobin A1C 6.8 % Hgb (4.8-6.0)
[2025-07-06 12:08] LABS: Albumin, Serum 4.1 gm/dL (3.4-4.8); Anion Gap 7 (7-16); BUN/Creatinine Ratio 31 Ratio (12-20); Blood Urea Nitrogen 56 mg/dL (9-23); Calcium 9.1 mg/dL (8.3-10.6); Calcium (Corrected) 9.1 mg/dL (8.5-10.1); Carbon Dioxide 25.2 mMol/L (20.0-31.0); Chloride 107 mMol/L (98-107); Creatinine (Component) 1.8 mg/dL (0.6-1.3); Glucose 138 mg/dL (74-106); Osmolality,Calculated 295 (275-295); Phosphorous 5.5 mg/dL (2.4-5.1); Potassium 5.4 mMol/L (3.4-5.1); Sodium 139 mMol/L (136-145); eGFR 29 See Note
== END | disposition home or self-care (01) ==
LOC: COPL 08:17
PROVIDERS: PCP Family Medicine; Referring Provider Internal Medicine Nephrology; Visit Provider Internal Medicine Nephrology
DX: I12.9 Hypertensive chronic kidney disease with stage 1 through stage 4 chronic kidney disease, or unspecified chronic kidney disease (principal); E11.22 Type 2 diabetes mellitus with diabetic chronic kidney disease; N18.32 Chronic kidney disease, stage 3b; D63.1 Anemia in chronic kidney disease
CPT/HCPCS: 36415; 80069; 81001; 83036; 85025

== ENCOUNTER 2025-08-09 06:27 | Day surgery (SDC) | payer MEDICARE, BC, SELFPAY ==
--- NOTE | 2025-08-08 07:00 | EKG_ITS ---
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
[2025-08-08 12:11] LABS: Basophils # (Auto) 0.1 Thou/mm3 (0.0-0.2); Basophils % (Auto) 1 % (0-2.5); Eosinophils # (Auto) 0.4 Thou/mm3 (0.0-0.5); Eosinophils % (Auto) 6 % (0-10); Hematocrit 40.4 % (36.0-46.0); Hemoglobin 12.8 g/dL (12.0-16.0); Immature Granulocytes Auto 0.02 Thou/mm3 (0.00-0.00); Lymphocytes # (Auto) 1.2 Thou/mm3 (1.0-4.8); Lymphocytes % (Auto) 21 % (10-50); Mean Corpuscular HGB Conc 31.7 g/dl (31.0-37.0); Mean Corpuscular Hemoglobin 27.4 pg (25.0-35.0); Mean Corpuscular Volume 86 fL (80-100); Monocytes # (Auto) 0.4 Thou/mm3 (0.0-0.8); Monocytes % (Auto) 7 % (0-12); Neutrophils # (Auto) 3.9 Thou/mm3 (1.8-7.7); Neutrophils % (Auto) 65 % (37-80); Nucleated Red Blood Cell # 0.00 Thou/mm3 (0.00-0.00); Nucleated Red Blood Cell % 0 /100 WBC (0); Platelet Count 146 Thou/mm3 (140-440); RDW Standard Deviation 45.1 fL (36.4-46.3); Red Blood Count 4.68 Miln/mm3 (4.00-5.20); White Blood Count 6.1 Thou/mm3 (3.6-11.0)
[2025-08-08 12:23] LABS: INR 0.9 (0.9-1.3); Partial Thromboplastin Time 26.6 Seconds (22.0-36.0); Prothrombin Time 10.1 Seconds (9.0-12.2)
[2025-08-08 12:29] LABS: Anion Gap 10 (7-16); BUN/Creatinine Ratio 30 Ratio (12-20); Blood Urea Nitrogen 68 mg/dL (9-23); Calcium 9.4 mg/dL (8.3-10.6); Carbon Dioxide 19.6 mMol/L (20.0-31.0); Chloride 110 mMol/L (98-107); Creatinine (Component) 2.3 mg/dL (0.6-1.3); Glucose 153 mg/dL (74-106); Osmolality,Calculated 302 (275-295); Potassium 5.1 mMol/L (3.4-5.1); Sodium 140 mMol/L (136-145); eGFR 22 See Note
[2025-08-09] VITALS (15 sets, daily range): BP systolic 113–166; BP diastolic 59–95; PULSE 61–88; RESP 11–21; TEMP 36.1–37.3; O2SAT 97–100; BMI 27.0
--- NOTE | 2025-08-09 07:15 | CHAP ---
Visited briefly with patient and prayed with her.
--- NOTE | 2025-08-09 13:59 | PC.NURSE ---
13:00= received report from Arabella Rogers patients right groin dressing looks clean dry and intact, no hematoma or bleeding, pulses on the right dorsalis feels normal stood patient up to go to the restroom, patient was safely able to use the restroom, i checked the right groin after patient got back to her bed and groin still looks fine, no hematoma or bleeding
--- NOTE | 2025-08-10 12:28 | ESOP_ITS ---
RE: ADAL SCHWARZ : 1950 DATE OF OPERATION: 08/09/2025 PROCEDURES PERFORMED: 1. Diagnostic left heart catheterization, selective coronary angiogram, left ventricular angiogram, CPT 45856. 2. Conscious sedation 30 minute duration. 3. Ultrasound guided access of right femoral artery. 4. Selective cannulation left internal mammary artery, left internal mammary artery angiogram, CPT 28669. 5. Iliofemoral angiogram followed by manual compression. DIAGNOSIS: Coronary artery disease, angina pectoris. INDICATION: The patient is a 75-year-old female with a past medical history of hypertension, has recurrent shortness of breath, atypical chest pain. Cardiac stress test nuclear scan showed multiple perfusion defects; hence, coronary angiogram was recommended as the patient is a candidate for coronary intervention. The patient explained the risks, benefits, and alternatives, and she agreed to have the procedure. PROCEDURE DETAILS: The patient was brought to the cardiac catheterization laboratory. She was given 2 mg of Versed and 100 mcg of fentanyl for conscious sedation. Right radial approach was initially taken. The right radial artery was very small and could not be cannulated; hence, we proceeded with a femoral approach. The left femoral artery was cannulated with a micropuncture technique and a 5-Palestinian sheath was introduced. Next, selective right and left coronary angiogram was performed by FR4 and JL4 diagnostic catheter. Left heart catheterization, left ventricular angiogram were then performed by a 5-Palestinian pigtail catheter. A left ventricular angiogram was performed. Subsequently, an iliofemoral angiogram was performed and manual compression was applied. The left internal mammary artery was selectively cannulated, and a left internal mammary artery angiogram was performed. CORONARY FLUOROSCOPY: Coronary fluoroscopy showed heavy calcification of the left main coronary artery, proximal and mid LAD, as well as circumflex artery proximal and mid segments. There is also calcification of the right coronary artery. CORONARY ANGIOGRAM: Coronary angiogram showed the following findings. Left coronary system: The left main coronary artery showed evidence of moderate 30-40% stenosis in the proximal left main coronary artery close to the origin. The distal left main coronary is normal. The left anterior descending artery showed evidence of heavy calcification, and there is evidence of multiple lesions. The proximal left anterior descending artery showed diffuse 50% stenosis. Subsequently, the mid left anterior descending artery showed multiple segments up to 90% stenosis close to the origin of the diagonal branch and the distal left anterior descending artery showed diffuse moderate disease. The left circumflex artery is large and codominant and gives off a large posterolateral branch and also a posterior descending artery and there is evidence of multiple lesions. The proximal left circumflex artery showed calcification and 60-70% stenosis. The mid circumflex artery showed 80% stenosis. The distal circumflex artery is replaced by a very large posterolateral branch, which appears to be normal. The right coronary artery is codominant, gives off right ventricular branches and posterior descending artery only. The proximal right coronary showed a 60% stenosis. The mid right coronary showed 80-90% stenosis. The distal right coronary artery showed a 95% stenosis just before giving off 2 branches. Left ventricular pressure recorded to be 100 and left ventricular angiogram showed normal left ventricular wall motion, ejection fraction 65%. The left internal mammary artery is free of disease and widely patent. Iliofemoral angiogram showed no significant disease. HEMODYNAMICS: Left ventricular pressure 150/10, aortic pressure 150/70, no gradient across the aortic valve. Left ventricular EDP is 18 mmHg. SUMMARY OF FINDINGS: 1. Severe triple vessel coronary artery disease and moderate left main disease with well-preserved left ventricular function of 65%. 2. Widely patent left internal mammary artery. RECOMMENDATIONS: The patient is recommended to continue medical management. If she continuous to have symptomatic shortness of breath and angina, recommend referral for cardiothoracic surgery for multivessel coronary artery bypass graft surgery. DT: 12:03:15 TT: 12:27:00 Ref: [id number] - TID: [id number]
== END 2025-08-09 13:50 | disposition home or self-care (01) ==
PROVIDERS: Internal Medicine Cardiovascular Disease; PCP Family Medicine; Referring Provider Internal Medicine Cardiovascular Disease; Visit Provider Internal Medicine Cardiovascular Disease
DX: I25.118 Atherosclerotic heart disease of native coronary artery with other forms of angina pectoris (principal); E11.22 Type 2 diabetes mellitus with diabetic chronic kidney disease; I13.10 Hypertensive heart and chronic kidney disease without heart failure, with stage 1 through stage 4 chronic kidney disease, or unspecified chronic kidney disease; N18.30 Chronic kidney disease, stage 3 unspecified; Z01.810 Encounter for preprocedural cardiovascular examination; Z79.4 Long term (current) use of insulin; Z79.82 Long term (current) use of aspirin; Z79.84 Long term (current) use of oral hypoglycemic drugs; Z79.899 Other long term (current) drug therapy
CPT/HCPCS: 93458; G0278; 36415; 80048; 85025; 85610; 85730; 93005; 99152; 99153; A4649; C1894; J0168; J0461; J1643; J2060; J2250; J2270; J2312; J2371; J3010; J3490; Q9967; C1725; J2305

== ENCOUNTER → 2025-08-17 | Outpatient (CLI) | payer MEDICARE, BC, SELFPAY | END | disposition home or self-care (01) | LOC: SLDO 14:37 | PROVIDERS: PCP Registered Nurse; Referring Provider Registered Nurse; Visit Provider Registered Nurse | DX: N61.1 Abscess of the breast and nipple (principal) | CPT/HCPCS: 87070; 87205 ==

== ENCOUNTER 2025-08-24 13:52 | Emergency (ER) | payer MEDICARE, BC, SELFPAY ==
[2025-08-24 14:00] VITALS: BP 139/68; PULSE 57; RESP 20; TEMP 36.7; O2SAT 100; BMI 27.3
--- NOTE | 2025-08-24 14:13 | PD.EDWOUND ---
ED Wound/Laceration-RME/HPI General Chief Complaint: Wound/Laceration Stated Complaint: RT BREAST ABCESS, PO ABX NOT WORKING Time Seen by Provider: 08/24/25 14:12 Arrival date/time: 08/24/25 13:52 RME / HPI RME / HPI narrative: 75-year-old patient presents emergency department chief complaint of abscess to right breast. Patient was recently seen for same complaint weeks ago and had cyst removal from her right breast. She currently has has an abscess to her right breast and was seen by her PCP and prescribed Bactrim she is taking the medication for 7 days and have 3 more days ago but states that her symptoms are not improving she saw her PCP this morning and was told to come to the emergency department to rule out possible sepsis. Patient is currently afebrile nontoxic-appearing but has significant pain to underneath her right breast. She also attest to history of diabetes but states that her diabetes is controlled. Related Data Home Medications ?Medication ?Instructions ?Recorded ?Confirmed cholecalciferol (vitamin D3) 125 125 mcg PO QDAY 05/12/20 08/09/25 mcg (5,000 unit) tablet (Vitamin D3) insulin glargine 100 unit/mL 14 unit subcut HS 05/12/20 08/09/25 subcutaneous solution (Lantus U-100 Insulin) insulin lispro 100 unit/mL 1 sliding scale dose subcut 05/12/20 08/09/25 subcutaneous solution (Humalog USEASDIRECTD U-100 Insulin) amlodipine 5 mg tablet 5 mg PO HS 05/26/23 08/09/25 valsartan 320 mg tablet 320 mg PO QDAY 08/11/24 08/09/25 ascorbic acid (vitamin C) 1,000 mg 1 g PO QDAY 04/22/25 08/09/25 tablet (Vitamin C) empagliflozin 10 mg tablet 10 mg PO QAM 04/22/25 08/09/25 (Jardiance) [id number] 8 mg-folic 400 1 tab PO QDAY 04/22/25 08/09/25 mcg-K 50 mcg-lutein 300 mcg tablet ([facility]) triamterene 37.5 1 cap PO DAILY 04/22/25 08/09/25 mg-hydrochlorothiazide 25 mg capsule aspirin 81 mg tablet 81 mg PO QDAY 08/09/25 08/09/25 Previous Rx's ?Medication ?Instructions ?Recorded zinc sulfate 50 mg zinc (220 mg) 220 mg (4.4 x 50 mg zinc (220 mg)) 08/12/24 capsule PO QDAY #30 caps doxycycline hyclate 100 mg capsule 100 mg PO BID 10 days #20 caps 08/24/25 hydrocodone 5 mg-acetaminophen 325 1 tab PO Q8H PRN pain #14 tabs 08/24/25 mg tablet Allergies Allergy/AdvReac Type Severity Reaction Status Date / Time Penicillins Allergy Severe HIVES & Verified 08/09/25 07:19 VOMITING vancomycin Allergy Rash Verified 08/24/25 13:56 Review of Systems Review of Systems Systems Reviewed: All systems reviewed, normal except as documented Constitutional Constitutional: Reports system reviewed and no additional complaints, except as documented Eyes Eyes: Reports system reviewed and no additional complaints, except as documented Cardiovascular Cardiovascular: Reports system reviewed and no additional complaints, except as documented Respiratory Respiratory: Reports system reviewed and no additional complaints, except as documented Musculoskeletal Musculoskeletal: Reports system reviewed and no additional complaints, except as documented Integumentary/Breasts Skin/Breast: Denies skin pain, Denies breast skin changes, Denies breast swelling and Reports other (Abscess and cellulitis underneath right breast) ED Exam General General appearance: Present alert Head Head exam: Present atraumatic and normocephalic ENT ENT exam: Present normal exam and normal oropharynx Chest Chest inspection: Present normal inspection and symmetric chest wall rise Respiratory Respiratory exam: Present normal lung sounds bilaterally and respiratory distress Cardiovascular Cardiovascular exam: Present regular rate and normal rhythm Extremities Exam Extremities exam: Present normal inspection and full ROM Neurological Exam Neurological exam: Present alert and oriented X3 Psychiatric Psychiatric exam: Present normal mood Course Quality Measures none Orders Category Date Time Status Blood Culture (Lab) Stat Lab 08/24/25 14:14 Ordered Blood Culture (Lab) Stat Lab 08/24/25 14:21 Received CBC [CBC] Stat Lab 08/24/25 14:21 Completed CMP [Comprehensive Metabolic Panel] Stat Lab 08/24/25 14:21 Completed Lactic Acid [Lactate (Lactic Acid)] Stat Lab 08/24/25 14:21 Completed Clindamycin 900Mg Ivpb [Cleocin/D5w Ivpb] 900 mg Med 08/24/25 14:13 Discontinued Pre-Mixed [Pre-mixed Bag] 1 bag IV X1 Morphine* Inj Med 08/24/25 14:13 Discontinued 4 mg IVP X1 ONE Ondansetron Odt [Zofran Odt] Med 08/24/25 14:13 Discontinued 4 mg PO X1 ONE Vital Signs Vital signs: Vital Signs Temperature 98.1 F 08/24/25 14:00 Pulse Rate 57 L 08/24/25 14:00 Respiratory Rate 20 08/24/25 14:00 Blood Pressure 139/68 H 08/24/25 14:00 Pulse Oximetry (%) 100 08/24/25 14:00 Oxygen Delivery Method Room Air 08/24/25 14:00 Wound / Laceration MDM Narrative MDM Narrative:: 75-year-old patient presents emergency department with complaint of abscess to right breast she is currently on day 7 of Bactrim DS patient states that she went to see her PCP today for evaluation and her PCP sent her to the emergency department to rule out possible sepsis blood work has been done and no signs of sepsis is noted. Patient remained afebrile, nontoxic-appearing, no significant elevation of lactic acid. White blood cell count is not elevated. Patient will be DC'd home with doxycycline and narcotic for pain control. Patient is in agreement with plan and is stable to DC him. Patient and daughter refused emergency room admission even the admission that technically he had felt on outpatient antibiotics. Patient data External records reviewed:: None Clinical information provided by:: patient and family Social determinants that could affect healthcare access:: none Patient has the following chronic illnesses:: DM How is presenting disease/condition affected by chronic disease/condition?: exacerbated by Evaluation data The following diagnostics were reviewed and interpreted by me:: lab results Lab and/or radiology exams considered but not ordered:: lab results considered and ordered Interpretation Summary: unremarkable CBC Medications / Prescriptions Medications or Prescriptions considered but not ordered:: Doxycycline Medication administrations:: Medication Administration History Discontinued Medications Clindamycin Phosphate 900 mg/ (IV Miscellaneous Supplies) 50 mls @ 50 mls/hr IV X1 ONE Stop: 08/24/25 15:12 Morphine Sulfate (Morphine Sulf Inj 4 Mg/Ml Vial) 4 mg IVP X1 ONE Stop: 08/24/25 14:14 Ondansetron HCl (Ondansetron Odt 4 Mg Tabrap) 4 mg PO X1 ONE; Protocol Stop: 08/24/25 14:14 na Consultations Consultation(s) initiated? (list below): No Diagnosis Wound Differential Diagnosis: abscess Most likely diagnosis given after review of the tests above:: abscess and cellulitis of tight breast Admission Indicated Admission indicated?: not indicated Admission Request Was there a request for admission?: No Disposition Plan Disposition Plan: Discharge Discharge Attestation Discharge Attestation: The patient and all family members were given an opportunity to ask questions and understood the discharge instructions. Discharge instructions specifically effects, indications for sooner follow up or return to the emergency department, and the expected course of current diagnosis. Patient condition: Stable Discharge Plan Plan Patient Disposition: HOME (Self Care) Prescriptions/Referrals Prescriptions/Med Rec: New doxycycline hyclate 100 mg capsule 100 mg PO BID 10 Days Qty: 20 0RF hydrocodone-acetaminophen 5-325 mg tablet 1 tab PO Q8H MDD 10 PRN (Reason: pain) Qty: 14 0RF No Action insulin glargine [Lantus U-100 Insulin] 100 unit/mL Solution 14 unit SUBCUT HS insulin lispro [Humalog U-100 Insulin] 100 unit/mL Solution 1 sliding scale dose SUBCUT USEASDIRECTD cholecalciferol (vitamin D3) [Vitamin D3] 125 mcg (5,000 unit) Tablet 125 mcg PO QDAY valsartan 320 mg tablet 320 mg PO QDAY zinc sulfate 50 mg zinc (220 mg) Capsule 220 mg PO QDAY Qty: 30 0RF aspirin 81 mg tablet 81 mg PO QDAY amlodipine 5 mg tablet 5 mg PO HS Jardiance 10 mg tablet 10 mg PO QAM [facility] 8 mg iron-400 mcg-50 mcg tablet 1 tab PO QDAY triamterene-hydrochlorothiazid 37.5-25 mg capsule 1 cap PO DAILY ascorbic acid (vitamin C) [Vitamin C] 1,000 mg tablet 1 g PO QDAY Problem List Clinical Impression: Abscess of breast, right, Cellulitis of left breast Patient/Caregiver Discharge Instructions Education Materials: ED Abscess Antibiotic ... Print Language: Citizen Of [place] Stand Alone Forms: Juanita Award Info., Patient Portal Info Letter
[2025-08-24 14:31] LABS: Lactate (Lactic Acid) 1.2 mMol/L (0.4-2.0)
[2025-08-24 14:32] LABS: Basophils # (Auto) 0.0 Thou/mm3 (0.0-0.2); Basophils % (Auto) 1 % (0-2.5); Eosinophils # (Auto) 0.3 Thou/mm3 (0.0-0.5); Eosinophils % (Auto) 4 % (0-10); Hematocrit 39.2 % (36.0-46.0); Hemoglobin 12.5 g/dL (12.0-16.0); Immature Granulocytes Auto 0.04 Thou/mm3 (0.00-0.00); Lymphocytes # (Auto) 1.5 Thou/mm3 (1.0-4.8); Lymphocytes % (Auto) 20 % (10-50); Mean Corpuscular HGB Conc 31.9 g/dl (31.0-37.0); Mean Corpuscular Hemoglobin 27.4 pg (25.0-35.0); Mean Corpuscular Volume 86 fL (80-100); Monocytes # (Auto) 0.4 Thou/mm3 (0.0-0.8); Monocytes % (Auto) 6 % (0-12); Neutrophils # (Auto) 5.1 Thou/mm3 (1.8-7.7); Neutrophils % (Auto) 70 % (37-80); Nucleated Red Blood Cell # 0.00 Thou/mm3 (0.00-0.00); Nucleated Red Blood Cell % 0 /100 WBC (0); Platelet Count 163 Thou/mm3 (140-440); RDW Standard Deviation 43.6 fL (36.4-46.3); Red Blood Count 4.56 Miln/mm3 (4.00-5.20); White Blood Count 7.4 Thou/mm3 (3.6-11.0)
[2025-08-24 15:01] LABS: Alanine Aminotransferase 28 U/L (10-49); Albumin, Serum 4.7 gm/dL (3.4-4.8); Albumin/Globulin Ratio 2.0 (1.2-2.2); Alkaline Phosphatase 121 U/L (46-116); Anion Gap 10 (7-16); Aspartate Amino Transferase 33 U/L (0-34); BUN/Creatinine Ratio 14 Ratio (12-20); Bilirubin,Total 0.2 mg/dL (0.3-1.2); Blood Urea Nitrogen 42 mg/dL (9-23); Calcium 9.5 mg/dL (8.3-10.6); Calcium (Corrected) 9.5 mg/dL (8.5-10.1); Carbon Dioxide 16.7 mMol/L (20.0-31.0); Chloride 111 mMol/L (98-107); Creatinine (Component) 2.9 mg/dL (0.6-1.3); Estimated Creatinine Clearance 16.3 mL/min (>60); Globulin 2.3 gm/dL (2.3-3.5); Glucose 211 mg/dL (74-106); Osmolality,Calculated 292 (275-295); Potassium 5.8 mMol/L (3.4-5.1); Sodium 138 mMol/L (136-145); Total Protein 7.0 gm/dL (5.7-8.2); eGFR 16 See Note
[2025-08-24] MEDS: ONDANSETRON ODT 4 MG TABRAP PO (15:46)
[2025-08-24] MEDS: MORPHINE SULF INJ 4 MG/ML VIAL IVP (15:46)
[2025-08-24] MEDS: CLINDAMYCIN 900MG IVPB 900 MG in PRE-MIXED 1 BAG 50 MG IV (15:49)
[2025-08-24 16:31] VITALS: BP 127/59; PULSE 59; RESP 16; O2SAT 99
== END 2025-08-24 16:52 | disposition home or self-care (01) ==
LOC: SERX 16:34
PROVIDERS: Physician Assistant; Emergency Provider Emergency Medicine; PCP Family Medicine
DX: N61.1 Abscess of the breast and nipple (principal); E11.9 Type 2 diabetes mellitus without complications
CPT/HCPCS: 36415; 80053; 83605; 85025; 87040; 96365; 96375; 99283; J0736; J2270; Q0162

== ENCOUNTER → 2025-08-30 | Outpatient (CLI) | payer MEDICARE, BC, SELFPAY | END | disposition home or self-care (01) | LOC: SLDO 14:39 | PROVIDERS: PCP Family Medicine; Referring Provider Nurse Practitioner Family; Visit Provider Nurse Practitioner Family | DX: N61.1 Abscess of the breast and nipple (principal) | CPT/HCPCS: 87070; 87077; 87186; 87205 ==

== ENCOUNTER → 2025-09-05 | Outpatient (CLI) | payer MEDICARE, BC, SELFPAY ==
[2025-09-05 10:29] LABS: Albumin, Serum 4.0 gm/dL (3.4-4.8); Anion Gap 11 (7-16); BUN/Creatinine Ratio 23 Ratio (12-20); Blood Urea Nitrogen 49 mg/dL (9-23); Calcium 8.9 mg/dL (8.3-10.6); Calcium (Corrected) 8.9 mg/dL (8.5-10.1); Carbon Dioxide 18.0 mMol/L (20.0-31.0); Chloride 112 mMol/L (98-107); Creatinine (Component) 2.1 mg/dL (0.6-1.3); Glucose 223 mg/dL (74-106); Osmolality,Calculated 301 (275-295); Phosphorous 5.4 mg/dL (2.4-5.1); Potassium 4.8 mMol/L (3.4-5.1); Sodium 141 mMol/L (136-145); eGFR 24 See Note
== END | disposition home or self-care (01) ==
LOC: COPL 08:42
PROVIDERS: PCP Family Medicine; Referring Provider Internal Medicine Cardiovascular Disease; Visit Provider Internal Medicine Cardiovascular Disease
DX: I20.89 Other forms of angina pectoris (principal)
CPT/HCPCS: 36415; 80069

== ENCOUNTER 2025-09-15 10:54 | Outpatient (RCR) | payer MEDICARE, BC, SELFPAY ==
--- NOTE | 2025-09-19 01:18 | CTCFLWUP_ITS ---
Patient: ADAL SCHWARZ : 1950 Page 2 of 2 FOLLOW UP NOTE DATE OF SERVICE: 09/15/2025 NAME: ADAL SCHWARZ ACCOUNT: [id number] : 1950 AGE: 75 INTERVAL HISTORY: Summary--- Adal, a 75yo female, presented for DVT follow-up and medication management. Her history includes stage 1 cancer (completed capecitabine in October 2023) and DVT in left peroneal and posterior tibial veins (diagnosed May 2024). Recent bone density scan showed significant decline in minera lization. Eliquis was discontinued after completing 6+ months of therapy. Plan includes port removal, DVT precautions education, continuing cancer surveillance with quarterly blood tests, and starting osteoporosis medication after completing scheduled dental work. Subjective: Chief Complaint Follow-up for DVT treatment, discussion about stopping Eliquis, consultation for dental procedure, review of recent test results History of Present Illness Adal Schwarz, a 75-year-old female with a history of stage 1 cancer and deep vein thrombosis (DVT), presents for follow-up. She reports no current pain and denies any symptoms related to her previous cancer diagnosis. The patient had a DVT in her left leg approximately 6-7 months ago, specifically in the left peroneal and left posterior tibial veins. She attributes this to her driving habits, as she frequently drives for 3 hours straight without stopping when visiting her children. She was started on Eliquis by Dr. Ruiz in May 2024 for DVT treatment. The patient has completed more than 6 months of anticoagulation therapy and is now eligible to discontinue it. Regarding her cancer history, the patient reports having completed chemotherapy on November 11, 2023, after taking capecitabine for 2 weeks. She stopped chemotherapy on October 13, 2023. The patient mentions having a port, which is now being considered for removal as she is no longer undergoing active cancer treatment. The patient discusses recent diagnostic tests, including a blood test she had done yesterday. There was some confusion about this test, as she was told that someone had called and said she would have it at home, which she denies. She also mentions having an ERCP referral done a long time ago due to suspected biliary tract obstruction. In terms of lifestyle changes, the patient reports improvements in her diet. She has reduced her meat consumption and now frequently eats grilled vegetables and salads, with occasional chicken. However, she admits she's not quite off the meat entirely. The patient denies having any current pain or symptoms related to her previous cancer diagnosis. She also mentions that her Signatura test is negative, indicating no evidence of cancer recurrence. Medications and Supplements - Eliquis - Started in May 2024 for DVT in left peroneal and left posterior tibial veins. - Completed more than 6 months of treatment. - Capecitabine - Taken for 2 weeks in October 2023. - Discontinued on November 11, 2023. - Calcium - Vitamin D - Not absorbing well. - Advised to take with fatty food. Review of Systems Musculoskeletal: Negative for pain. Cardiovascular: Positive for history of blood clot in left leg. Objective: Laboratory, Imaging, and Diagnostic Test Results - Date: 01/27/2025 - Bone Density Scan: - Lumbar mineralization: decreased 4.7% compared to 2021 - Hip mineralization: decreased 10.8% compared to 2021 - Date: 05/2024 - Venous Doppler Ultrasound: Positive for occlusive acute deep vein thrombosis in the left peroneal and left posterior tibial veins - Recent (date not specified): - Signatura test: Negative - Recent (date not specified): - Complete Blood Count (CBC): No longer anemic ONCOLOGY HISTORY:?[facility] Hx? DIAGNOSIS: Iron deficiency anemia, unspecified [ICD10] D50.9; Malignant neoplasm of rectum [ICD10] C20 DATE OF DIAGNOSIS: synchronous stage I (T2, NX, cM 0) pT2, NX well-differentiated rectal adenocarcinoma S/p transanal excision of the rectal adenocarcinoma (06/19/2023) Stage IIa (PT3, N0, cM0) moderately differentiated adenocarcinoma of the ascending colon, S/p right hemicolectomy (08/15/2023) S/p adjuvant chemoradiati on therapy for the rectal area with Capecitabine as radiosensitizing agent. Unfortunately Ms. Schwarz was not able to take the Capecitabine due to CRF. According to her she only take 2 weeks worth of Capecitabine. Currently on adjuvant 5-FU and leucovorin (02/12/2024??) Chronic renal insufficiency Type 2 diabetes currently on insulin. Left leg dvt on eliquis History of peripheral neuropathy. STAGE/TNM: synchronous stage I (T2, NX, cM 0) pT2, NX well-differentiated rectal adenocarcinoma S/p transanal excision of the rectal adenocarcinoma (06/19/2023) Stage IIa (PT3, N0, cM0) moderately differentiated adenocarcinoma of the ascending colon, S/p right hemicolectomy (08/15/2023) TREATMENT HISTORY: Care?Plan Start?Date Cycle Day Intent INJECTAFER 09/25/2023 1 14 Palliative 5?FU?and?leucovorin 02/12/2024 1 56 Curative?(adjuvant) HISTORY OF PRESENT ILLNESS: Adal Schwarz is a 75-year-old ENG speaking female with history of type 2 diabetes currently on insulin, peripheral neuropathy for at least last 5 years and lower extremities started having rectal bleeding in April 2023. Patient also lost about 20 pounds in last 1 year. 05/27/2023: Ms. Schwarz had a colonoscopy done Patient: ADAL SCHWARZ. 06/19/2023: Ms. Schwarz had a full-thickness transanal excision of the rectal tumor Patient: ADAL SCHWARZ. 08/15/2023: Ms. Schwarz had right hemicolectomy 11/19/2023 - 12/26/2023: Ms. Schwarz had adjuvant chemoradiation therapy to the rectal cancer. Unfortunately she was not able to take full course of Capecitabine. According to Ms. Schwarz she only took 2 weeks worth of Capecitabine. 10/22/2023: PET/CT scan? 02/05/2024: PET/CT scan? 02/12/2024: Started on adjuvant 5-FU and leucovorin. OTHER MEDICAL HISTORY/CONDITIONS: HYPERTENSION DIBETES TYPE 2 PANCREATITIS / COLON CANCER DX KIDNEY STONES RHEUMATIC FEVER 1961 HERNIA LAPARASCOPIC ASSISTED RIGHT COLECTOMY (08/15/2023) COLONOSCOPY () HERNIA SX REPAIR (05/16/2020) HYSTERECTOMY (1978) VENA SEAL BILATERAL LEG DR RAMIREZ 02/2020 EYELID SURGERY 09/2002 CERVICAL EPIDURAL 10/2020 REMOVAL OF TUBES AND OVARIES 05/2022 RECTAL CANCER SX 06/26/2023 APPENDECTOMY 1960 SX BILATERAL HAMMERTOES 09/06/2019 BLADDER LEFT/REPAIR RECTUM AND VAGINA 01/2019 REMOVAL OF KIDNEY STONES LEFT SIDE STENT 09/2018 PANCREATIC PSEUDOCYST 03/2018 UMBILICAL HERNIA 05/2017 REMOVAL KIDNEY STONE RIGHT SIDE/ STENT PLACED 04/2015 CHOLECYSTECTOMY 03/2011 BLADDER REPAIR [place] 01/2003 TONSILLECTOMY 1963 FAMILY HISTORY: Father: FATHER BLADDER CANCER, NASAL TUMOR Mother:?MOTHER?LUNG?CANCER Sibling:?DENIES Children:?DENIES Cancer History:?RECTAL CANCER DX 05/2023 SOCIAL HISTORY: 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 amlodipine - 5 mg 1 tab Daily 2. apixaban - 5 mg (74 tabs) 1 tab as per instructions 3. calcium - 600 mg 1 tab Twice a Day 4. cloNIDine - 0.2 mg/24 hr 1 Patch Weekly 5. doxycycline hyclate - 100 mg 1 tab Daily 6. Eliquis - 5 mg 1 tab Daily 7. HumaLOG KwikPen Insulin - 100 unit/mL As directed 8. Lantus - 100 unit/mL 13 Unit In the evening 9. Lomotil - 2.5-0.025 mg 1 tab one po four times a day prn diarrhea 10. Triamterene W/Hctz - 37.5-25 mg 1 tab Daily 11. valsartan - 320 mg 1 tab Daily 12. Vitamin C - 1,000 mg 1 Capsule 13. Vitamin D2 - 1,000 unit 1 Capsule Daily?Palabra Meds? Medications Last Reconciled by Neema Jane MD on 09/15/2025 ALLERGIES: Penicillin V; Penicillin V; MIDAZOLAM HCL REVIEW OF SYSTEMS: A complete 14-point review of systems was performed and is negative except as noted in interval history. PHYSICAL EXAMINATION:?[facility] PE? VITAL SIGNS: Temperature?97.2, B/P?126/76, Oxygen?Saturation?97% Weight?155?lbs PAIN: 0 - No pain ECOG Performance Status: 0 - Asymptomatic and fully active General Examination alert oriented x 4 CHEST: Clear to auscultation. No wheezes or rales audible. CARDIAC: Rhythm regular, no murmurs or gallops present. ABDOMEN: Soft. No hepatomegaly. No splenomegaly. EXTREMITIES: At least 2+ pitting edema LABORATORY DATA: I have personally reviewed and interpreted each of the patient?s relevant lab tests, abnormal findings are below: Date 08/08/25 08/24/25 09/05/25 ??WHITE?BLOOD?COUNT?(Thou/mm3) ? 7.4 ? ??RED?BLOOD?COUNT?(Miln/mm3) ? 4.56 ? ??HEMOGLOBIN?(gm/dl) ? 12.5 ? ??HEMATOCRIT?(%) ? 39.2 ? ??PLATELET?COUNT?(Thou/mm3) ? 163 ? ??NEUTROPHILS?%,?AUTO?(%) ? 70 ? ??LYMPH?%,?AUTO?(%) ? 20 ? ??NEUTROPHILS,?AUTO?(Thou/mm3) ? 5.1 ? ??GLUCOSE,RANDOM?(mg/dL) 153?H 211?H 223?H ??BLOOD?UREA?NITROGEN?(mg/dL) 68?H 42?H 49?H ??CREATININE?(mg/dL) 2.30?H 2.90?H 2.10?H ??SODIUM?(mmol/L) 140 138 141 ??POTASSIUM?(mmol/L) 5.1 5.8?H 4.8 ??CHLORIDE?(mmol/L) 110?H 111?H 112?H ??CrCl?(CandG)?(ml/min) 24.06 19.08 26.35 ??AST/SGOT?(Unit/L) ? 33 ? ??ALT/SGPT?(Unit/L) ? 28 ? ??ALKALINE?PHOSPHATASE?(Unit/L) ? 121?H ? ??BILIRUBIN,?TOTAL?(mg/dL) ? 0.2?L ? ??PROTEIN?TOTAL?(gm/dl) ? 7.0 ? ??ALBUMIN,?SERUM?(gm/dl) ? 4.7 4.0 ??GLOBULIN?(gm/dl) ? 2.3 ? ??ALBUMIN/GLOBULIN?RATIO ? 2.0 ? ??CALCIUM,?SERUM?(mg/dL) 9.4 9.5 8.9 ??CALCIUM?SERUM?(CORRECTED)?(mg/dL) ? 9.5 8.9 ASSESSMENT/PLAN:?Andriy Kohli Assessment/Plan? Adal Schwarz, a 75-year-old female with a history of stage 1 cancer, deep vein thrombosis (DVT), and osteoporosis, presenting for follow-up and management of multiple medical issues. 1) synchronous stage I (T2, NX, cM 0) pT2, NX well-differentiated rectal adenocarcinoma S/p transanal excision of the rectal adenocarcinoma (06/19/2023) 2) Stage IIa (PT3, N0, cM0), pMMR, moderately differentiated adenocarcinoma of the ascending colon, S/p right hemicolectomy (08/15/2023) Ms. Schwarz completed adjuvant chemoradiation of the rectal cancer on 12/26/2023. Unfortunately she was not able to take Capecitabine for the full course of radiation. According Ms. Schwarz she only took Capecitabine for about 2 weeks. 01/2024 on adjuvant chemotherapy with 5-FU and leucovorin. Completed 8-9 months of adjuvant therapy with some breaks and atleast 6 months of chemo . - Stopped chemotherapy on 11/18/2024 . no further chemotherapy - I reviewed MRI abdomen and pelvis no recurrence - - - Deep Vein Thrombosis (DVT) - Assessment: Patient was diagnosed with DVT in the left peroneal and left posterior tibial veins in May 2024. She was started on Eliquis (apixaban) by Dr. Ruiz, likely in June 2024. The patient has completed more than 6 months of anticoagulation therapy. She is no longer on chemotherapy, having completed treatment on November 11, 2023. Recent blood work shows resolution of anemia. - Plan: - - Discontinue Eliquis (apixaban) as patient has completed more than 6 months of treatment for DVT - - Educate patient on DVT precautions: - - Avoid prolonged sitting - - Avoid crossing legs while sitting - - Seek immediate medical attention for leg/arm swelling or sudden shortness of breath - - Avoid massaging swollen areas - - Recommend daily walking or use of treadmill/elliptical to improve circulation - - Follow up in 6 months - - Cancer Follow-up - Assessment: Patient has a history of stage 1 cancer, now in remission. She completed chemotherapy with capecitabine on November 11, 2023. Current surveillance includes regular blood tests (likely tumor markers) every 3 months, which have shown high sensitivity (90%) for detecting cancer recurrence. Recent Signatura test was negative, indicating no evidence of cancer at present. - Plan: - - Continue surveillance blood tests every 3 months indefinitely - - Remove port-a-cath to reduce risk of blood clots - - Educate patient on importance of continuing surveillance testing - - Encourage dietary modifications: - - Reduce meat consumption - - Increase intake of grilled vegetables and salads - - Osteoporosis - Assessment: Recent bone density scan completed on January 27, 2025, shows significant decline in bone mineralization. Lumbar mineralization decreased by 4.7% and hip mineralization decreased by 10.8% compared to 2021. The decline may be partly due to poor absorption of vitamin D. - Plan: - - Start osteoporosis medication after completion of dental work - - Continue calcium and vitamin D supplementation - - Recommend taking vitamin D with milk or a teaspoon of olive oil to improve absorption - - Reassess bone density in 6 months - - Dental Issues - Assessment: Patient requires dental work, including tooth extraction. This procedure necessitates temporary discontinuation of anticoagulation therapy. - Plan: - - Coordinate with dental provider for tooth extraction - - Ensure 2-3 days for healing post-extraction before resuming any necessary anticoagulation - - Complete dental work before initiating osteoporosis medication 3) Bilary duct stones REFERRED TO [facility] ORDERS: Order # Description [id number] Comprehensive Metabolic Panel - 12 + CEA + CBC with Auto Diff + MD Follow Up 6 Month [id number] RETURN TO CLINIC: I reviewed the diagnosis, prognosis, and recommended treatment/procedure options with the patient (and/or their legal security representative), including the potential benefits, risks, side effects and alternative therapies. We also discussed the option of no treatment and the possibility of clinical trial participation, if applicable. All questions were addressed, and they demonstrated understanding. They provided informed consent to proceed with the proposed plan of care. BILLING AND COMPLIANCE: I reviewed external records from providers outside my specialty as summarized above. I spent a total of 50 minutes on this patient?s care on the day of their visit excluding time spent related to any billed procedures. This time includes time spent with the patient as well as time spent documenting in the medical record, reviewing patients records and tests, obtaining history, placing orders, communicating with other healthcare professionals, counseling the patient, family or caregiver, and/or care coordination for the diagnoses above. Electronically Signed by: Dean Kohli MD T: 1:15 AM CC: PCP: Duran Briseno Referring: Duran Briseno This document was completed utilizing speech recognition software. Grammatical errors, random word insertions, pronoun errors, and incomplete sentences are an occasional consequence of this system due to software limitations, ambient noise, and hardware issues. Any formal questions or concerns about the content, text or information contained within the body of this dictation should be directly addressed to the provider for clarification.
== END 2025-09-25 23:59 | disposition home or self-care (01) ==
LOC: SCTC 10:54
PROVIDERS: PCP Family Medicine; Referring Provider Family Medicine; Visit Provider Internal Medicine Hematology & Oncology
DX: Z08 Encounter for follow-up examination after completed treatment for malignant neoplasm (principal); Z85.038 Personal history of other malignant neoplasm of large intestine; Z85.048 Personal history of other malignant neoplasm of rectum, rectosigmoid junction, and anus; Z92.21 Personal history of antineoplastic chemotherapy; Z86.718 Personal history of other venous thrombosis and embolism; Z79.01 Long term (current) use of anticoagulants; M81.0 Age-related osteoporosis without current pathological fracture; K80.50 Calculus of bile duct without cholangitis or cholecystitis without obstruction
CPT/HCPCS: 99212; G0463